=== PATIENT | female | born 1990 | race Caucasian/White ===

== ENCOUNTER 2022-12-26 13:32 | Outpatient (REF) | payer MEDICAID, OTHER, SELFPAY ==
--- NOTE | ~2022-12-26 | MM_ITS ---
EXAMINATION: MM DIAGNOSTIC DIGITAL BREAST TOMOSYNTHESIS, BILATERAL US DIAGNOSTIC ULTRASOUND BREAST, BILATERAL CLINICAL INFORMATION: 32-year-old with bilateral breast pain and tenderness, approximately 6 months. No palpable mass noted by patient. No discharge. No erythema. Clinical exam notes scattered palpable areas. No known family history breast cancer. The lifetime risk of breast cancer based on the Tyrer-Cuzick Model is 10%. COMPARISON: Targeted left breast ultrasound 02/17/2018. No prior mammography. TECHNIQUE: Digital breast tomosynthesis is performed in both the craniocaudal and mediolateral oblique views along with computer-aided detection (CAD). Synthesized 2D images are generated from the tomosynthesis. Ultrasound bilateral breasts is targeted to the areas of clinical concern using grayscale imaging and color Doppler without and with harmonics. FINDINGS: There are scattered areas of fibroglandular density (ACR BI-RADS breast composition Category b). There are no significant masses, abnormal calcifications, or other abnormalities. No skin thickening or coarsening of the Mumtaz's ligaments. No architectural abnormality. The axilla and skin contours are unremarkable. Ultrasound bilateral breasts demonstrate no cystic or solid mass or architectural abnormality or focal duct ectasia. No skin thickening or edema tracking in soft tissue planes. No hyperemia. Results and management options are discussed with the patient at time of visit. MM/MM tomosynthesis diagnostic BI IMPRESSION: -No mammographic evidence of malignancy or inflammatory changes. -Unremarkable bilateral breast ultrasound. ASSESSMENT: BI-RADS 1: Negative RECOMMENDATION: 1. Patient's bilateral mastodynia should be managed based on the clinical impression. If there remains a clinically palpable concern, further evaluation may be considered with surgical consult. 2. Otherwise, routine annual screening mammography, beginning age 40, or earlier as clinical risk factors warrant. This patient's information was entered into a reminder system with a target due date for their next mammogram.
== END 2022-12-26 13:33 | disposition home or self-care (01) ==
LOC: HO.MAMMO 13:32
PROVIDERS: PCP Internal Medicine; Visit Provider Pediatrics
DX: N64.4 Mastodynia (principal)
CPT/HCPCS: 76642; 77062; 77066

== ENCOUNTER 2023-01-28 17:37 | Outpatient (REF) | payer MEDICAID, OTHER, SELFPAY ==
[2023-02-05 07:44] LABS: HPV 16 RNA NOT DETECTED (NOT DETECTED); HPV mRNA E6/E7 rflx Detected (Not Detected)
== END 2023-01-28 17:38 | disposition home or self-care (01) ==
LOC: HO.HHCL 17:37
PROVIDERS: Visit Provider Advanced Practice Midwife
DX: Z12.4 Encounter for screening for malignant neoplasm of cervix (principal); Z11.51 Encounter for screening for human papillomavirus (HPV)
CPT/HCPCS: 87624; 87625; 88142

== ENCOUNTER 2023-07-28 10:30 | Outpatient (REF) | payer MEDICAID, OTHER, SELFPAY ==
[2023-07-28 14:58] LABS: MANUAL DIFF FLAG NO
[2023-07-28 15:03] LABS: Basophils Percent Auto 0.3 % (0-2); Hematocrit 40.2 % (37.0-47.0); Hemoglobin 13.8 g/dl (12.0-16.0); Lymphocytes Absolute Auto 1.7 X10*3/uL (1.2-4.9); Mean Corpuscular HGB Conc 34.3 g/dl (31.0-35.0); Mean Corpuscular Volume 96.2 fL (80.0-98.0); Mean Platelet Volume 10.5 fL (9.4-12.3); Monocytes Absolute Auto 0.2 X10*3/uL (0.1-1.2); Monocytes Percent Auto 6.8 % (2-11); Neutrophils Absolute Auto 1.2 x10*3/uL (2.0-8.3); Neutrophils Percent Auto 37.9 % (45-73); Platelet Count 185 X10*3/uL (160-400); Red Blood Count 4.18 X10*6/uL (4.20-5.50); Red Cell Distribution Width 12.8 % (11.0-16.0); White Blood Count 3.1 X10*3/uL (4.8-10.8)
[2023-07-28 15:06] LABS: Appearance Urine Cloudy; Color Urine Yellow; Glucose Urine UA Negative (Negative); Leukocyte Esterase Urine Negative (Negative); Nitrite Urine Positive (Negative); Specific Gravity - Urine 1.015 (1.005-1.025); UMIC TRIGGER UACC YES; Urine Blood Negative (Negative); Urine Ketones 15 mg/dL (Negative); Urine Protein Negative (Neg-Trace)
[2023-07-28 15:09] LABS: Bacteria Urine 4+ (None Seen); Hyaline Casts Urine 0-2 /LPF (0-2); RBC Urine 0-2 /HPF (0-2); UACC Culture Trigger YES; WBC Urine 0-5 /HPF (0-5)
[2023-07-28 15:33] LABS: Alanine Aminotransferase 111 U/L (0-31); Albumin Level 4.4 g/dL (3.5-5.0); Alkaline Phosphatase 95 U/L (39-117); Anion Gap 18 (12-20); Aspartate Amino Transferase 114 U/L (5-31); Bilirubin Total 0.7 mg/dL (0.0-1.0); Blood Urea Nitrogen 8 mg/dL (9-16); Calcium 9.2 mg/dL (8.4-10.2); Carbon Dioxide 23 mmol/L (22-29); Chloride 104 mmol/L (96-108); Cholesterol 219 mg/dL (<200); Estimated Glomerular Filt Rate > 60; Glucose Random 73 mg/dL (60-115); HDL Cholesterol 76 mg/dL (>40); LDL Cholesterol Calculated 124 mg/dL (<100); Potassium 3.8 mmol/L (3.3-5.1); Sodium 141 mmol/L (135-145); Total Protein 7.7 g/dL (6.5-8.0); Triglycerides 99 mg/dL (<150)
[2023-07-28 15:48] LABS: TSH reflex Free T4 1.61 uIU/mL (0.32-4.0)
[2023-07-29 05:48] LABS: HIV AB/AG Nonreactive (Nonreactive); HIV Num 1 0.04 S/CO (0.00-0.99)
== END 2023-07-28 10:31 | disposition home or self-care (01) ==
LOC: HO.CHCLDS 10:30
PROVIDERS: Visit Provider Internal Medicine
DX: Z00.00 Encounter for general adult medical examination without abnormal findings (principal); M62.830 Muscle spasm of back; Z11.3 Encounter for screening for infections with a predominantly sexual mode of transmission
CPT/HCPCS: 36415; 80053; 80061; 81001; 84443; 85025; 87086; 87389

== ENCOUNTER 2023-07-31 10:22 | Outpatient (REF) | payer MEDICAID, OTHER, SELFPAY ==
[2023-08-01 08:07] LABS: HBS Num1 39.24 mIU/mL (0-7.99); HBc Num1 0.04 S/CO (0.00-0.79); HBsAGNum1 0.35 S/CO (0.00-0.99); Hepatitis A Antibody IgM 0.15 Index (0-0.79); Hepatitis A Antibody IgM 0.16 Index (0-0.79); Hepatitis B Core Antibody Nonreactive (Nonreactive); Hepatitis B Surface Antigen Negative (Negative); ~HepC Num1 0.07 S/CO (0.00-0.79); ~Hepatitis A Antibody IgM Nonreactive (Nonreactive); ~Hepatitis B Surface Antibody REACTIVE (Nonreactive); ~Hepatitis C Antibody Nonreactive (Nonreactive)
[2023-08-01 08:09] LABS: Hepatitis B Core Antibody Nonreactive (Nonreactive)
== END 2023-07-31 10:23 | disposition home or self-care (01) ==
LOC: HO.CHCLDS 10:22
PROVIDERS: Visit Provider Internal Medicine
DX: R74.01 Elevation of levels of liver transaminase levels (principal)
CPT/HCPCS: 36415; 86704; 86706; 86709; 86803; 87340

== ENCOUNTER 2023-08-05 16:13 | Outpatient (REF) | payer MEDICAID, OTHER, SELFPAY ==
[2023-08-06 11:22] LABS: CT PCR NOT DETECTED (Not Detect.); NG PCR NOT DETECTED (Not Detect.)
== END 2023-08-05 16:14 | disposition home or self-care (01) ==
LOC: HO.CHCLNP 16:13
PROVIDERS: Visit Provider Advanced Practice Midwife
DX: Z11.3 Encounter for screening for infections with a predominantly sexual mode of transmission (principal)
CPT/HCPCS: 0353U

== ENCOUNTER 2023-08-19 08:13 | Outpatient (REF) | payer MEDICAID, OTHER, SELFPAY ==
--- NOTE | ~2023-08-19 | US_ITS ---
EXAMINATION: US ABDOMEN COMPLETE CLINICAL INFORMATION: Transaminitis. COMPARISON: None available. TECHNIQUE: Real-imaging of the abdominal viscera. Limited visualization due to bowel gas. FINDINGS: PANCREAS: Limited visualization of pancreatic tail and head. Imaged portion of pancreatic body is unremarkable. ABDOMINAL AORTA: Nonaneurysmal. INFERIOR VENA CAVA: Visualized portions are normal. LIVER: Liver measures 12.2 cm. Mildly increased hepatic parenchymal heterogeneity and echogenicity could be associated with hepatocellular disease/hepatic steatosis and substantially limits visualization. Correlation with liver function tests and clinical exam recommended to determine further management. GALLBLADDER: No gallstones. No gallbladder wall thickening. COMMON BILE DUCT: Normal in caliber measuring 0.3 cm in diameter. RIGHT KIDNEY: Multiple tiny echogenic foci, possibly representing tiny calcifications. No hydronephrosis. Limited visualization. The kidney measures 11.8 cm in maximum dimension. LEFT KIDNEY: Multiple tiny echogenic foci, possibly representing tiny calcifications. No hydronephrosis. Limited visualization. The kidney measures 10.8 cm in maximum dimension. SPLEEN: The spleen measures 12.1 cm in maximum dimension. Spleen borderline enlarged. FREE FLUID: None. US/US abdomen complete IMPRESSION: 1. Mildly increased hepatic parenchymal heterogeneity and echogenicity could be associated with hepatocellular disease/hepatic steatosis and substantially limits visualization. Correlation with liver function tests and clinical exam recommended to determine further management. 2. Multiple tiny echogenic foci in the kidneys, possibly representing tiny calcifications. No hydronephrosis. Limited visualization.
== END 2023-08-19 08:14 | disposition home or self-care (01) ==
LOC: HO.US 08:13
PROVIDERS: PCP Internal Medicine; Visit Provider Internal Medicine
DX: R74.01 Elevation of levels of liver transaminase levels (principal)
CPT/HCPCS: 76700

== ENCOUNTER 2023-09-02 16:28 | Outpatient (REF) | payer MEDICAID, OTHER, SELFPAY ==
[2023-09-03 14:49] LABS: BV Int Neg Control Negative (Negative); BV Int Pos Control Positive (Positive)
== END 2023-09-02 16:29 | disposition home or self-care (01) ==
LOC: HO.CHCLNP 16:28
PROVIDERS: Visit Provider Advanced Practice Midwife
DX: N89.8 Other specified noninflammatory disorders of vagina (principal)
CPT/HCPCS: 87480; 87510; 87660

== ENCOUNTER 2024-01-29 18:12 | Outpatient (REF) | payer MEDICAID, OTHER, SELFPAY ==
[2024-02-02 12:44] LABS: HPV mRNA E6/E7 Not Detected (Not Detected)
== END 2024-01-29 18:13 | disposition home or self-care (01) ==
LOC: HO.HHCLNP 18:12
PROVIDERS: Visit Provider Advanced Practice Midwife
DX: Z12.4 Encounter for screening for malignant neoplasm of cervix (principal)
CPT/HCPCS: 36415; 87624; 88175

== ENCOUNTER 2024-04-21 10:43 | Outpatient (REF) | payer MEDICAID, OTHER, SELFPAY ==
[2024-04-21 15:04] LABS: Alanine Aminotransferase 18 U/L (0-31); Albumin Level 4.6 g/dL (3.5-5.0); Alkaline Phosphatase 70 U/L (39-117); Aspartate Amino Transferase 24 U/L (5-31); Bilirubin Direct 0.1 mg/dL (0.0-0.5); Bilirubin Total 0.4 mg/dL (0.0-1.0); Total Protein 7.9 g/dL (6.5-8.0)
[2024-04-23 14:04] LABS: Anti Nuclear Antibody Screen NEGATIVE (NEGATIVE)
== END 2024-04-21 10:44 | disposition home or self-care (01) ==
LOC: HO.CHCLDS 10:43
PROVIDERS: Visit Provider Internal Medicine
DX: R74.8 Abnormal levels of other serum enzymes (principal)
CPT/HCPCS: 36415; 80076; 86038

== ENCOUNTER 2024-08-11 10:42 | Outpatient (REF) | payer MEDICAID, OTHER, SELFPAY ==
--- OUTSIDE RECORDS SUMMARY | 2024-08-11 12:27 | XMS_ITS | Encounter Summary ---
Author Organization [employer] Address [address] [facility] 7 [place] [address] Care Team Providers Care Chief Controller Tower Name Role Phone Kevin Trejo MD Primary Care Provider [phone] Reason for Visit * Reason Comments Annual Exam Encounter Details Date Type Department Care Team ([facility] st Contact Info) Description 08/11/2024 10:00 AM EST Office Visit [facility] MED & PEDS [address] [place], [place] [phone] Kevin Trejo MD [address] [place] [address] Annual physical exam (Primary Dx); Muscle cramps; Smoking; Transaminitis; Impacted cerumen of right ear; Encounter for immunization Social History Tobacco Use Types Packs/Day Years Used Date Smoking Tobacco: Every Day Cigarettes Passive Smoke Exposure: Never Smokeless Tobacco: Never Tobacco Cessation:Ready to Q uit: Not Asked; Counseling Given: Not Answered Comments:3-4 cig during the week ends. Alcohol Use Standard Drinks/Week Comments Defer 0 (1 standard drink = 0.6 oz pur e alcohol) Depression Answer Date Recorded Patient Health Questionnaire-9 Score 0 08/11/2024 Patient Health Questionnaire-9 Score 0 08/11/2024 Last PHQ-9: Questionnaire Data Not on file 0 08/11/2024 Housing Stability Answer Date Recorded What is your housing situation today? I have jono mayorga 08/04/[address] you li ve. Do you have problems with any of the following? None of the above 08/04/2024 Food Insecurity Answer Date Recorded Within the past 12 months, y ou worried that your food would run out before you got money to buy more: Never True 08/04/2024 Within the past 12 months,th e food you bought just didn't last and you didn't have enough money to get more: Never True 10/2024 Transportation Answer Date Recorded In the past 12 months, has l ack of transportation kept you from medical appts, meetings, work or from getting things needed for daily living? No 08/04/2024 Utilities Answer Date Recorded In the past 12 months, has t he electric, gas, oil or water company threatened to shut off services in your home? No 08/04/2024 Depression Answer Date Recorded Patient Health Questionnaire-2 Score 0 08/11/2024 Internet Access Answer Date Recorded Internet Access Q1 Yes 08/04/2024 Internet Access Q2 Not on file 08/04/2024 Comments No Sex and Gender Information Value Date Recorded Sex Assigned at Female 04/29/2022 10:30 AM EDT Legal Sex Female 10:30 AM EDT Gender Identity Female 04/29/2022 10:30 AM EDT Sexual Orientation Straight 04/29/2022 10 :30 AM EDT documented as of this encounter Last Filed Vital Signs Vital Sign Reading Time Taken Comments Blood Pressure 110/70 08/11/2024 10:10 AM EST Pulse 64 08/11/2024 10:10 AM EST Temperature 36.7 ??C (98.1 ??F) 08/11/2024 1 0:10 AM EST Respiratory Rate 20 08/11/2024 10:1 0 AM EST Oxygen Saturation 98% 08/11/2024 10: 10 AM EST Inhaled Oxygen Concentration - - Weight 69.9 kg (154 lb 3.2 oz) 08/11/2024 10:10 AM EST Height 171 cm (5' 7.32 ) 08/11/2024 10: 10 AM EST with shoes decline to remove Body Mass Index 23.92 08/11/2024 10:10 AM EST documented in this encounter Plan of Treatment Scheduled Orders Name Type Priority Associated Diagnoses Orde r Schedule Comprehensive Metabolic Panel Lab Routine Annual physical exam Expected: 08/11/2024 (Approximate), Expires: 08/11/2025 CBC auto differential Lab Routine Annual physical exam Expected: 08/11/2024 (Approximate), Expires: 08/11/2025 TSH W/Reflex to FT4 Lab Routine Annual physical exam Expected: 08/11/2024 (Approximate), Expires: 08/11/2025 documented as of this encounter Visit Diagnoses Diagnosis Annual physical exam- Primary Routine general medical examination at a health care facility Muscle cramps Smoking Tobacco use disorder Transaminitis Nonspecific elevation of levels of transaminase or lactic acid dehydrogenase (LDH) Impacted cerumen of right ear Impacted cerumen Encounter for immunization documented in this encounter Additional Health Concerns Assessment Noted Time PHQ-9 Depression Total Score: 0 08/11/19 25 10:14 AM EST documented as of this encounter Care Teams Chief Controller Tower Relationship Specialty Start Date End Date Kevin Trejo MD [address] [place] [id number] PCP - General Internal Medicine 05/14/16 documented as of this encounter
--- OUTSIDE RECORDS SUMMARY | 2024-08-11 12:27 | XMS_ITS | Encounter Summary ---
Author Organization [employer] Address [address] [facility] 7t [place] [address] Care Team Providers Care Business Executive Name Role Phone Kevin Trejo MD Primary Care Provider [phone] Reason for Visit * Reason Comments Med Change Request Encounter Details Date Type Department Care Team ([facility] st Contact Info) Description 12/03/2022 Refill [facility] [address] [place], [place] [phone] Karen Roblero MD [address] [place] [address] Social History Tobacco Use Types Packs/Day Years Used Date Smoking Tobacco: Never Passive Smoke Exposure: Never Smokeless Tobacco: Never Depression Answer Date Recorded Patient Health Questionnaire-9 Score 0 07/30/2022 Depression Answer Date Recorded Patient Health Questionnaire-2 Score 0 07/30/2022 Comments No Sex and Gender Information Value Date Recorded Sex Assigned at Female 04/29/2022 10:30 AM EDT Legal Sex Female 10:30 AM EDT Gender Identity Female 04/29/2022 10:30 AM EDT Sexual Orientation Straight 04/29/2022 10 :30 AM EDT COVID-19 Exposure Response Date Recorded In the last 10 days, have yo u been in contact with someone who was confirmed or suspected to have Coronavirus/COVID-19? No / Unsure 12/03/2022 10:16 AM EDT documented as of this encounter Plan of Treatment Not on file documented as of this encounter Visit Diagnoses Not on filedocumented in this encounter Additional Health Concerns Assessment Noted Time PHQ-9 Depression Total Score: 0 07/30/19 23 11:27 AM EST documented as of this encounter Care Teams Business Executive Relationship Specialty Start Date End Date Kevin Trejo MD [address] [place] [id number] PCP - General Internal Medicine 05/14/16 documented as of this encounter
--- OUTSIDE RECORDS SUMMARY | 2024-08-11 12:27 | XMS_ITS | Encounter Summary ---
Author Organization [employer] Address [address] [place] [address] 7t [place] [address] Care Team Providers Care Drill Press Set Up Operator Name Role Phone Kevin Trejo MD Primary Care Provider [phone] Reason for Referral * Imaging (Routine) - Closed Specialty Diagnoses / Procedures Referred By Jen jones Referred To Contact Diagnoses Painful breasts Segmental fibroadenosis of breast, unspecified laterality Procedures BI US Breast Complete Right Karen Roblero MD [address] [place] [address] Phone: tel: fax: [address] Phone: tel: fax: Referral ID Status Reason Start Date Expiration Date Visits Re quested Visits Authorized [id number] Closed 12/11/2022 06/09/2023 1 1 * Imaging (Routine) - Closed Specialty Diagnoses / Procedures Referred By Jen jones Referred To Contact Diagnoses Painful breasts Segmental fibroadenosis of breast, unspecified laterality Procedures BI US Breast Complete Left Karen Roblero MD [address] [place] [address] Phone: tel: fax: [address] Phone: tel: fax: Referral ID Status Reason Start Date Expiration Date Visits Re quested Visits Authorized [id number] Closed 12/11/2022 06/09/2023 1 1 * Imaging (Routine) - Closed Specialty Diagnoses / Procedures Referred By Jen t Referred To Contact Diagnoses Painful breasts Segmental fibroadenosis of breast, unspecified laterality Procedures BI Mammogram Diagnostic Bilateral Karen Roblero MD [address] [place] [address] Phone: tel: fax: [address] Phone: tel: fax: Referral ID Status Reason Start Date Expiration Date Visits Re quested Visits Authorized [id number] Closed 12/11/2022 06/09/2023 1 1 Encounter Details Date Type Department Care Team (Late st Contact Info) Description 12/11/2022 Orders Only [facility] MED [facility] PEDS [address] [place] [address] Karen Roblero MD [address] [place] [address] Painful breasts (Primary Dx); Segmental fibroadenosis of breast, unspecified laterality Social History Tobacco Use Types Packs/Day Years [...] as of this encounter Visit Diagnoses Diagnosis Painful breasts- Primary Mastodynia Segmental fibroadenosis of breast, unspecified laterality documented in this encounter Additional Health Concerns Assessment Noted Time PHQ-9 Depression Total Score: 0 07/30/19 23 11:27 AM EST documented as of this encounter Care Teams Drill Press Set Up Operator Relationship Specialty Start Date End Date Kevin Trejo MD [address] [place] [id number] PCP - General Internal Medicine 05/14/16 documented as of this encounter
--- OUTSIDE RECORDS SUMMARY | 2024-08-11 12:27 | XMS_ITS | Encounter Summary ---
Author Organization [employer] Address [address] [facility] 7 [place] [address] Care Team Providers Care Linoleum Layer Helper Name Role Phone Kevin Trejo MD Primary Care Provider [phone] Reason for Visit * Reason Onset Date Comments Chart Prep 08/10/2024 Encounter Details Date Type Department Care Team ([facility] st Contact Info) Description 08/10/2024 Telephone [facility] MED & PEDS [address] [place] [address] Kevin Trejo MD [address] [place] [address] Chart Prep Social History Tobacco Use Types Packs/Day Years Used Date Smoking Tobacco: Every Day Cigarettes Passive Smoke Exposure: Never Smokeless Tobacco: Never Alcohol Use Standard Drinks/Week Comments Defer 0 [...] AM EDT documented as of this encounter Miscellaneous Notes * Telephone Encounter - Joy Arias [place] - 08/10/2024 1:54 PM EST Chart Prep Labs: not done Images: done Vaccines due: yes Referrals: complete Screenings: pap smear Overdue care gaps: Sbirt, PHQ-9, disability screening documented in this encounter Plan of Treatment Not on file documented as of this encounter Visit Diagnoses Not on filedocumented in this encounter Additional Health Concerns Assessment Noted Time PHQ-9 Depression Total Score: 8 07/28/19 24 10:28 AM EST documented as of this encounter Care Teams Linoleum Layer Helper Relationship Specialty Start Date End Date Kevin Trejo MD [address] [place] [id number] PCP - General Internal Medicine 05/14/16 documented as of this encounter
--- OUTSIDE RECORDS SUMMARY | 2024-08-11 12:28 | XMS_ITS | Encounter Summary ---
Author Organization [employer] Address [address] [facility] 7t [place] [address] Care Team Providers Care Steel Wheel Engraver Name Role Phone Kevin Trejo MD Primary Care Provider [phone] Reason for Visit * Reason Onset Date Comments Nurse Triage 06/17/2023 Encounter Details Date Type Department Care Team ([facility] st Contact Info) Description 06/17/2023 Telephone [facility] MED & PEDS [address] [place] [address] Kevin Trejo MD [address] [place] [address] Nurse Triage Social History Tobacco Use Types Packs/Day Years Used Date Smoking Tobacco: Some Days Cigarettes Passive Smoke Exposure: Never Smokeless Tobacco: Never Alcohol Use Standard Drinks/Week Comments Defer 0 (1 standard drink = 0.6 oz pur e alcohol) Depression Answer Date Recorded Patient Health Questionnaire-9 Score 0 07/30/2022 Housing Stability Answer Date Recorded What is your housing situation today? Not on tan e 04/28/[address] you li ve. Do you have problems with any of the following? None of the above 04/28/2023 Food Insecurity Answer Date Recorded Within the past 12 months, y ou worried that your food would run out before you got money to buy more: Never True 04/28/2023 Within the past 12 months,th e food you bought just didn't last and you didn't have enough money to get more: Never True Transportation Answer Date Recorded In the past 12 months, has l ack of transportation kept you from medical appts, meetings, work or from getting things needed for daily living? No 04/28/2023 Utilities Answer Date Recorded In the past 12 months, has t he electric, gas, oil or water company threatened to shut off services in your home? No 04/28/2023 Depression Answer Date Recorded Patient Health Questionnaire-2 Score 0 07/30/2022 Comments No Sex and Gender Information Value Date Recorded Sex Assigned at Female 04/29/2022 10:30 AM EDT Legal Sex Female 10:30 AM EDT Gender Identity Female 04/29/2022 10:30 AM EDT Sexual Orientation Straight 04/29/2022 10 :30 AM EDT documented as of this encounter Miscellaneous Notes * Telephone Encounter - Yumi Fang RN - 06/17/2023 9:06 AM EST Triage call Pt reports cough. Difficult to triage due to constant coughing while on the phone. Pt reports cough has been persistent for a week now. Pt has a deep bronchial, constant cough. Pt is not able to produce anything. Pt is not sure if fever is present and hasn't tested for Covid at all. Negfor nasal drainage, headache, body aches or other CONNER symptoms. Pt reports chest hurts with cough bu t, not without the cough. Pt has used honey, warm liquids without effect. Advised to come to [facility] today at [facility] [address] apt. Home care reviewed and Pt is already doing many of the recommendations. Protocol Used: Cough (Adult) Protocol-Based Disposition: See in Office or Video Visit Today Video visit not offered Positive Triage Question: * Severe coughing spells (e.g., whooping sound after coughing, vomiting after coughing) * All higher-acuity triage questions were negative Care Advice Discussed: * Reassurance and Education - Cough * Cough Medicines * Cough Syrup With Dextromethorphan * Coughing Spells * Prevent Dehydration * Humidifier * Reasons To Call Back - Difficulty breathing - Cough lasts more than 3 weeks - Fever lasts more than 3 days - You become worse * Telephone Encounter - Codey Khanrero - 06/17/2023 8:32 AM EST Symptom: Cough Outcome: Schedule an urgent appointment (within 1 hour) or talk to a nurse or provider soon Reason: Wheezing (high-pitched whistling sound) The caller accepted this outcome Please contact Pt [phone] documented in this encounter Plan of Treatment Not on file documented as of this encounter Visit Diagnoses Not on filedocumented in this encounter Additional Health Concerns Assessment Noted Time PHQ-9 Depression Total Score: 0 07/30/19 11:27 AM EST documented as of this encounter Care Teams Steel Wheel Engraver Relationship Specialty Start Date End Date Kevin Trejo MD [address] [place] [id number] PCP - General Internal Medicine 05/14/16 documented as of this encounter
--- OUTSIDE RECORDS SUMMARY | 2024-08-11 12:28 | XMS_ITS | Clinical Summary ---
Author Organization [employer] Address [address] [facility] 7[address] [place] [address] Care Team Providers Care Outside Repairer Special Name Role Phone Kevin Trejo MD Primary Care Provider [phone] Allergies No known active allergies Medications ibuprofen 800 MG tablet take 1 tablet by oral route 3 times every day with food x 5d as needed for bleeding 2 09/04/19 25 Active fish oil (fish oil) 1000 MG capsule Take 1 capsule orally bid 60 capsule 3 3 Active azithromycin (Zithromax Z-Bolivar) 250 MG tablet Take 2 tablets once on day 1, then 1 tablet once a day for 4 days. 6 tablet 3 Active diphenhydrAMINE (BENADryl) 25 MG tablet Take 1 tablet (25 mg) by mouth if needed at bedtime (cough). 30 tablet 3 Active dicyclomine (Bentyl) 10 MG capsuleIndicatio ns:Lower abdominal pain,Diarrhea, unspecified type Take 1 capsule (10 mg) by mouth 4 times daily. 120 capsule 11 4 04/21/20 25 Active tiZANidine (Zanaflex) 2 MG tabletIndication s:Muscle cramps Take 1 tablet (2 mg) by mouth every 6 (six) hours if needed for muscle spasms for up to 10 days. 30 tablet 5 08/21/19 25 Active nicotine polacrilex (Nicorette) 4 MG gumIndications:S moking Chew 1 each (4 mg) if needed for smoking cessation. 100 each 5 09/11/19 25 Active carbamide peroxide (Debrox) 6.5 % otic solutionIndicati ons:Impacted cerumen of right ear Administer 5-10 drops into affected ear(s) 2 times daily for 4 days. 30 mL 08/15/19 25 Active Active Problems Problem Noted Date Diagnosed Date Bacterial conjunctivitis 12/12/2017 Encounters Date Type Department Care Team Description 08/11/2024 10:00 AM EST Office Visit [facility] [address] [place] [address] Kevin Trejo MD Annual physical exam (Primary Dx); Muscle cramps; Smoking; Transaminitis; Impacted cerumen of right ear; Encounter for immunization 08/11/2024 Travel 08/10/2024 Telephone [facility] [address] [place] [address] Kevin Trejo MD Chart Prep 08/04/2024 Patient Outreach [facility] [address] [place] [address] Kevin Trejo MD Pre-visit Planning (SDOH negative, Tobacco screening positive.) 07/27/2024 9:30 AM EST Office Visit [facility] [address] [place] [address] Corky Alonzo 06/16/2024 10:00 AM EST Office Visit [facility] [address] [place] [address] Corky Alonzo 05/20/2024 10:00 AM EST Office Visit [facility] [address] [place] [address] Corky Alonzo from Last 3 Months Immunizations Name Administration Dates Next Due Hep B, adult 08/11/2024 Tdap 08/11/2024 Social History Tobacco Use Types Packs/Day Years [...] Orientation Straight 04/29/2022 10 :30 AM EDT Last Filed Vital Signs Vital Sign Reading [...] Mass Index 23.92 08/11/2024 10:10 AM EST Plan of Treatment Health Maintenance Due Date Last Done Comments Dental Prophylaxis 1991 Pneumococcal Vaccine: Pediatrics (0 to 5 Years) and At-Risk Patients (6 to 49) Years) (1 of 2 - PCV) 10/26/2010 Hepatitis B Vaccines (2 of 3 - 19+ 3-dose series) 09/08/2024 08/11/2024 Dental Oral Exam 10/13/2024 04/13/2024, 12/20/2022 Influenza Vaccine (#1) 2024 Postp oned from 02/29/2024 (Patient Refused) Cervical Cancer Screening 01/28/2025 Family Planning (PISQ) 01/28/2025 01/29/2024 HPV/Cotest 01/28/2025 01/29/2024, 01/28/2023 Pap Smear 01/28/2025 01/29/2024, 01/28/2023 Dental X-Ray: Bitewings 04/14/2025 04/13/20 24, 03/19/2024, 12/20/2022 SDOH Screening 08/04/2025 08/04/2024 Alcohol/Substance Use Screening 08/11/2025 08/11/2024 COVID-19 Vaccine (1 - 2023-2 5 season) 2025 Postponed from 02/28 (Patient Refused) Depression Screening 08/11/2025 08/11/2024, 08/11/2024 Tobacco Screening 08/11/2025 08/11/2024 Dental X-Ray: Full Mouth 12/21/2025 12/20/2022 Lipid Panel 07/28/2028 07/28/2023 DTaP/Tdap/Td Vaccines (2 - T d or Tdap) 08/11/2034 08/11/2024 Zoster Vaccines (1 of 2) 10/26/2041 RSV Patients and Patients Aged 60 years or older (1 - 1-dose 75+ series) 10/26/2066 HIV Screening Completed 07/28/2023 Hepatitis C Screening Completed 07/31/2023 , 08/16/2022 HIB Vaccines Aged Out No longer eligi ble based on patient's age to complete this topic HPV Vaccines Aged Out No longer eligi ble based on patient's age to complete this topic Hepatitis A Vaccines Aged Out No long er eligible based on patient's age to complete this topic IPV Vaccines Aged Out No longer eligi ble based on patient's age to complete this topic Meningococcal Vaccine Aged Out No chrissie daryl eligible based on patient's age to complete this topic RSV under 20 months Aged Out No longe r eligible based on patient's age to complete this topic Rotavirus Vaccines Aged Out No longer eligible based on patient's age to complete this topic Procedures Procedure Name Priority Date/Time Associated Diagnosis Comments 2 O RESTORATIVE - RESIN-BASED COMPOSITE RESTORATIONS - DIRECT - RESIN-BASED COMPOSITE - ONE SURFACE, POSTERIOR Routine 07/27/2024 9:30 AM EST 16 O RESTORATIVE - RESIN-BASED COMPOSITE RESTORATIONS - DIRECT - RESIN-BASED COMPOSITE - ONE SURFACE, POSTERIOR Routine 06/16/2024 10:00 AM EST 15 O RESTORATIVE - RESIN-BASED COMPOSITE RESTORATIONS - DIRECT - RESIN-BASED COMPOSITE - ONE SURFACE, POSTERIOR Routine 06/16/2024 10:00 AM EST 3 O RESTORATIVE - RESIN-BASED COMPOSITE RESTORATIONS - DIRECT - RESIN-BASED COMPOSITE - ONE SURFACE, POSTERIOR Routine 05/20/2024 10:00 AM EST BITEWINGS - 4 RADIOGRAPHIC IMAGES Routine 04/13/2024 2:00 PM EDT PERIODIC ORAL EVALUATION - ESTABLISHED PATIENT Routine 04/13/2024 2:00 PM EDT THINPREP IMAGING PAP AND HPV MRNA E6/E7 Routine 01/29/2024 10:45 AM EDT HEPATITIS PANEL, GENERAL Routine 07/31/2023 10:27 AM EST Transaminitis HIV 1/2 ANTIGEN/ANTIBODY, FOURTH GENERATION W/RFL Routine 07/28/2023 10:33 AM EST Annual physical exam Muscle spasm of back Screen for STD (sexually transmitted disease) LIPID PANEL, STANDARD Routine 07/28/2023 10:33 AM EST Annual physical exam Muscle spasm of back DIAGNOSTIC - DIAGNOSTIC IMAGING - INTRAORAL - COMPREHENSIVE SERIES OF RADIOGRAPHIC IMAGES Routine 12/20/2022 10:00 AM EDT from Last 3 Months or Most Recently Relevant to Health Maintenance Results * (ABNORMAL) ThinPrep Imaging Pap and HPV mRNA E6/E7 (01/29/2024 10:45 AM EDT) HPV nRNA E6/E7 Not Detected Not Detected [facility] Comment:Methodology: Transcr iption-Mediated AmplificationThis assay detects E6/E7 viral messenger RNA (mRNA) from 14high-risk HPV types (16,18,31,33,35,39,45,51,52,56,58,59,66,68).Cervical sources are required for HPV testing.If a vaginal source from a patient who has had atotal hysterectomy with removal of cervix wassubmitted, please contact the testing laboratoryfor alternative testing options.For additional information, please refer [email or web address]/[email or web address](This link if provided for information/educational purposes only.)THIS TEST WAS PERFORMED AT:[facility]-[address] [place] [phone] NAIDU MD SOURCE: SEE NOTE [facility] Comment:None given Report Status: [facility] Clinical Information: SEE NOTE [facility] Comment:None given LMP: SEE NOTE [facility] Comment:NONE GIVEN Prev. PAP: SEE NOTE [facility] Comment:NONE GIVEN Prev. BX: SEE NOTE [facility] Comment:NONE GIVEN Statement Of Adequacy: SEE [facility] Comment:Satisfactory for elle luation.Endocervical/transformation zone component absent. General Categorization: SEE NOTE(A) [facility] Comment:Cytology Results: Ep ithelial Cell Abnormality Interpretation/Result: SEE NOTE(A) [facility] Comment:Atypical Squamous Ce lls of UndeterminedSignificance (ASC-US) Cytology Comment SEE NOTE [facility] Comment:This Pap test has be en evaluated with computerassisted technology. Dining Car Hop: SEE NOTE [facility] Comment:ALEXANDRA HILLIARD(ASCP)ALEXANDRA nicolas location: [place] [address] Review Dining Car Hop: [facility] Pathologist SEE NOTE [facility] Comment:Karen Paula M.D., Ph .D.,Board Certified in Anatomic and Clinical Pathologyand Cytopathology(electronic signature)Consulting Pathologist[facility] Pathology[address] [place] [address] [phone] PAP Infection TNP [facility] See Note SEE NOTE [facility] Comment:EXPLANATORY NOTE:The Pap is a screening test for cervical cancer. It isnot a diagnostic test and is subject to false negativeand false positive results. It is most reliable when asatisfactory sample, regularly obtained, is submittedwith relevant clinical findings and history, and whenthe Pap result is evaluated along with historic andcurrent clinical information. 01/29/2024 10:4 5 AM EDT 01/29/2024 6:14 PM EDT Narrative [facility] - 02/04/2024 3:06 PM EDT SEE SCANNED RESULTS IN EMR us Rebeka Lopez CNM LAB PATHOLOGY ORDERABLES Final Result Performing Organization Address [facility] Co de Phone Number [facility] [address] [place] [phone] * Hepatitis A,B,C Profile (07/31/2023 10:27 AM EST) Hepatitis A IgM Nonreactive Nonreactive [facility] Comment:IgM antibodies to JAMES V not detected; does not exclude earlyacute or recovered HAV infection. ~Hepatitis B Surface Antibody REACTIVE Nonreactive [facility] Comment:REACTIVE: > 11.99 mI U/mL Hepatitis B Core Antibody Nonreactive Nonreactive [facility] Hepatitis C Antibody Nonreactive Nonreactive [facility] Comment:Antibodies to HCV no t detected; does not exclude early acuteHCV infection. Hepatitis B Surface Ag Negative Negative [facility] Blood Venous blood specimen / Unknown 07/31/2023 10:27 AM EST 07/31/2023 2:11 PM EST us Kevin Trejo MD LAB BLOOD ORDERABLES Final Result Performing Organization Address [facility] Co de Phone Number [facility] [address] [place] [phone] * HIV-1/2 Antigen and Antibodies, Fourth Generation, with Reflexes (07/28/2023 10:33 AM EST) Pathologist [facility] HIV AB/AG Nonreactive Nonreactive [facility] Comment:HIV-1 p24 Ag and/or HIV-1/HIV-2 Ab not detected.A test result that is nonreactive does not exclude thepossibility of exposure to or infection with HIV-1 and/orHIV-2. Nonreactive results in this assay for individualswith prior exposure to HIV-1 and/or HIV-2 may be due toantigen and antibody levels that are below the limit ofdetection of this assay.The [employer] HIV Ag/Ab Combo assay result andsupplemental assay results should be interpreted inconjunction with the patient's clinical presentation,history and other laboratory results. If the results areinconsistent with clinical evidence, additional testing issuggested to confirm the result. Blood Venous blood specimen / Unknown 07/28/2023 10:33 AM EST 07/28/2023 2:52 PM EST us Kevin Trejo MD LAB BLOOD ORDERABLES Final Result [facility] [address] [place] [phone] * (ABNORMAL) Lipid Panel, Standard (07/28/2023 10:33 AM EST) Pathologist [facility] Triglycerides 99 <150 mg/dL [facility] Comment:Desirable Triglyceri de: less than 150 mg/dLBorderline High Triglyceride 150-199 mg/dLHigh Triglyceride: 200-499 mg/dLVery High Triglyceride: greater than or equal to 5OO mg/dL Cholesterol 219(H) <200 mg/dL [facility] Comment:Desirable Cholestero l: less than 200 mg/dLBorderline High Cholesterol: 200-239 mg/dLHigh Cholesterol: greater than 239 mg/dL LDL Cholesterol Calculated 124(H) <100 mg/dL [facility] Comment:Desirable LDL: less than 100 mg/dLNear Optimal/Above Optimal LDL: 110- 129 mg/dLBorderline High LDL: 130-159 mg/dLHigh LDL: 160-189 mg/dLVery High LDL: greater than or equal to 190 mg/dL HDL Cholesterol 76 >40 mg/dL [facility] Comment:Desirable HDL: great er than 40 mg/dL Note: This HDL assay may give artificially low results in patients with liver disease. Blood Venous blood specimen / Unknown 07/28/2023 10:33 AM EST 07/28/2023 2:52 PM EST us Kevin Trejo MD LAB BLOOD ORDERABLES Final Result [facility] [address] [place] [phone] from Last 3 Months or Most Recently Relevant to Health Maintenance [facility] F[facility] MEDICAID LIMITED ADULT DENTAL - [facility] FULL (MEDICAID) Care Teams Outside Repairer Special Relationship Specialty Start Date End Date Kevin Trejo MD [address] [place] [phone] PCP - General Internal Medicine 05/14/16
--- OUTSIDE RECORDS SUMMARY | 2024-08-11 12:28 | XMS_ITS | Encounter Summary ---
Author Organization [employer] Address [address] [facility] 7 [place] [address] Care Team Providers Care Facilities Technician Name Role Phone Kevin Trejo MD Primary Care Provider [phone] Reason for Visit * Reason Onset Date Comments Appointment Request 11/29/2022 Encounter Details Date Type Department Care Team (Late st Contact Info) Description 11/29/2022 Telephone [facility] [address] [place] [address] Kevin Trejo MD [address] [place] [address] [phone] Appointment Request Social History Tobacco Use Types Packs/Day Years Used Date Smoking Tobacco: Never Smokeless Tobacco: Never Depression Answer Date [...] encounter Miscellaneous Notes * Telephone Encounter - Amy Sosa - 11/29/2022 12:25 PM EDT Tc from pt requesting a follow up appointment with PCP. General Medical Practitioner checked Susana schedule and no availability. documented in this encounter Plan of Treatment Not on file documented as of this encounter Visit Diagnoses Not on filedocumented in this encounter Additional Health Concerns Assessment Noted Time PHQ-9 Depression Total Score: 0 07/30/19 23 11:27 AM EST documented as of this encounter Care Teams Facilities Technician Relationship Specialty Start Date End Date Kevin Trejo MD [address] [place] [phone] PCP - General Internal Medicine 05/14/16 documented as of this encounter
--- OUTSIDE RECORDS SUMMARY | 2024-08-11 12:28 | XMS_ITS | Encounter Summary ---
Author Organization [employer] Address [address] [facility] 7t [place] [address] Care Team Providers Care Crusher And Blender Operator Name Role Phone Kevin Trejo MD Primary Care Provider [phone] Reason for Visit * Reason Comments Filling Encounter Details Date Type Department Care Team ([facility] Contact Info) Description 07/27/2024 9:30 AM EST Office Visit [facility] [address] [place], [place] [phone] Corky Alonzo [address] [place], [place] [phone] Social History Tobacco Use Types Packs/Day Years Used Date Smoking Tobacco: Every Day Cigarettes Passive Smoke Exposure: Never Smokeless Tobacco: Never Alcohol Use Standard Drinks/Week Comments Defer 0 (1 standard drink = 0.6 oz pur e alcohol) Depression Answer Date Recorded Patient Health Questionnaire-9 Score 8 07/28/2023 Patient Health Questionnaire-9 Score 8 07/28/2023 Last PHQ-9: Questionnaire Data Not on file 0 07/28/2023 Housing Stability Answer Date Recorded What is your housing situation today? I have jono mayorga 07/18/[address] you li ve. Do you have problems with any of the following? None of the above 07/18/2023 Food Insecurity Answer Date Recorded Within the [...] Answer Date Recorded Patient Health Questionnaire-2 Score 1 07/28/2023 Comments No Sex and Gender Information Value Date Recorded Sex Assigned at Female 04/29/2022 10:30 AM EDT Legal Sex Female 10:30 AM EDT Gender Identity Female 04/29/2022 10:30 AM EDT Sexual Orientation Straight 04/29/2022 10 :30 AM EDT documented as of this encounter Last Filed Vital Signs Vital Sign Reading Time Taken Comments Blood Pressure 114/82 07/27/2024 9:42 AM EST Pulse - - Temperature - - Respiratory Rate - - Oxygen Saturation - - Inhaled Oxygen Concentration - - Weight - - Height - - Body Mass Index - - documented in this encounter Progress Notes * Corky Alonzo - 07/27/2024 9:30 AM EST Dental procedures in this visit [id number] - RESTORATIVE - RESIN-BASED COMPOSITE RESTORATIONS - DIRECT - RESIN-BASED COMPOSITE - ONE SURFACE, POSTERIOR 2 O (Completed) Service provider: Corky Alonzo Billrigoberto provider: Keila May DDS Patient ID: Rosy Yanez is a 33 y.o. female. Time Out: Date: 07/27/2024 Location: [facility] Tooth: #2 Procedure: Jainism Verified the above with patient, patient care nursing assistant, and provider. Confirmed via patient's chart, intraorally and by radiographs. Forensic Analyst: not applicable Composite adventist done on # [address] Corky Alonzo Risk, benefits, and alternatives discussed with the patient. CONSENT FORM INITIALED & SIGNED BY THE PATIENT AND COUNTERSIGNED BY Dr. Corky Alonzo Medical history: Reviewed in EHR Vitals: Blood pressure 114/82. Allergies: Reviewed in EHR Medications: Reviewed in EHR ASA 1 - LA: 20% topical benzocaine; Local infiltration with 1 carpule 4% septocaine/articaine 1:100,000 epinephrine - Existing adventist and recurrent decay removed - Desensitizer: Gluma - Base: LimeLite - Etching done using 37% phosphoric acid. - freight agent applied. - Composite adventist done using Filtek body/flowable composite, shade A2 - Anatomy and margins adjusted - Occlusion checked with articulating paper - Necessary reductions made. - Jainism smoothed and polished. - Post op instructions given Patient satisfied, left in stable condition Patient made aware possible post op sensitivity [place]: [place] Preps Provider: Dr. Corky Alonzo Straightening Roll Operator: Michelle Tobias Supervising dentist: Dr. May * Keila May DDS - 07/27/2024 9:30 AM EST I have reviewed the documentation and dental procedures completed by the rendering provider, Corky Alonzo and approve their chart entries for this visit. ANTHONY Parekh DDS documented in this encounter Plan of Treatment Scheduled Orders Name Type Priority Associated Diagnoses Orde r Schedule 19 19 RETREATMENT OF PREVIOUS ROOT CANAL THERAPY - [facility]AR Dental Routine [address] arting 07/27/2024 30 30 RETREATMENT OF PREVIOUS ROOT CANAL THERAPY - [facility] Dental Routine [address] arting 07/27/2024 documented as of this encounter Procedures Procedure Name Priority Date/Time Associated Diagnosis Comments 2 O RESTORATIVE - RESIN-BASED COMPOSITE RESTORATIONS - DIRECT - RESIN-BASED COMPOSITE - ONE SURFACE, POSTERIOR Routine 07/27/2024 9:30 AM EST documented in this encounter Visit Diagnoses Not on filedocumented in this encounter Additional Health Concerns Assessment Noted Time PHQ-9 Depression Total Score: 8 07/28/19 24 10:28 AM EST documented as of this encounter Care Teams Crusher And Blender Operator Relationship Specialty Start Date End Date Kevin Trejo MD [address] [place] [phone] PCP - General Internal Medicine 05/14/16 documented as of this encounter
--- OUTSIDE RECORDS SUMMARY | 2024-08-11 12:28 | XMS_ITS | Encounter Summary ---
Author Organization [employer] Address [address] [facility] 7t [place] [address] Care Team Providers Care Retail Marketing Coordinator Name Role Phone Kevin Trejo MD Primary Care Provider [phone] Encounter Details Date Type Department Care Team (Late st Contact Info) Description 08/12/2022 Orders Only [facility] MEDICINE [address] [place] [address] Kevin Trejo MD [address] [place], [place] [phone] Other drug-induced neutropenia (CMS/HCC) (Primary Dx); Elevated liver enzymes Social History Tobacco Use Types Packs/Day Years [...] suspected to have Coronavirus/COVID-19? No / Unsure 07/30/2022 11:15 AM EST documented as of this encounter Plan of Treatment Scheduled Orders Name Type Priority Associated Diagnoses Orde r Schedule CBC auto differential Lab Routine Other drug-induced neutropenia (CMS/HCC) Elevated liver enzymes Expected: 08/28/2022 (Approximate), Expires: 08/17/2023 Hepatic Function Panel Lab Routine Other drug-induced neutropenia (CMS/HCC) Expected: 09/14/2022 (Approximate), Expires: 08/17/2023 documented as of this encounter Procedures Procedure Name Priority Date/Time Associated Diagnosis Comments HEPATITIS C AB W/REFL TO HCV RNA, QN, PCR Routine 08/16/2022 9:28 AM EST Other drug-induced neutropenia (CMS/HCC) HEPATITIS A AB, TOTAL W/REFL IGM Routine 08/13/2022 9:10 AM EST Elevated liver enzymes CBC WITH AUTO DIFFERENTIAL Routine 08/13/2022 9:10 AM EST Other drug-induced neutropenia (CMS/HCC) HEPATITIS B CORE AB TOTAL Routine 08/13/2022 9:10 AM EST Elevated liver enzymes HEPATITIS B SURFACE ANTIBODY, QUALITATIVE Routine 08/13/2022 9:10 AM EST Elevated liver enzymes HEPATIC FUNCTION PANEL Routine 08/13/2022 9:10 AM EST Elevated liver enzymes documented in this encounter Results * Hepatitis C Antibody with Reflex to HCV, RNA, Quantitative, Real-Time PCR (08/16/2022 9:28 AM EST) Hepatitis C Antibody NON-REACT MARLA NON-REACT MARLA [email or web address] Index 0.03 <1.00 [facility] [employer] Comment: HCV antibody was non-reactive. There is no laboratory evidence of HCV infection. In most cases, no further action is required. However, if recent HCV exposure is suspected, a test for HCV RNA (test code 86665) is suggested. For additional information please refer to http://education.Gr[employer]oise/faq/KSH88r6 (This link is being provided for informational/ educational purposes only.) Blood Venous blood specimen / Unknown 08/16/2022 9:28 AM EST 08/16/2022 9:28 AM EST us Kevin Trejo MD LAB BLOOD ORDERABLES Final Result Performing Organization Address City/[facility]/ZIP Co de Phone Number [facility] [address] [place] [address], [place] [address] [facility] [address] [place] [address], (Nl2) [place] [address] * Hepatitis A Antibody, Total with Reflex to IgM (08/13/2022 9:10 AM EST) Hepatitis A Antibody, Total w/Refl IgM NON-REACT MARLA NON-REACT MARLA [facility] Comment: For additional information, please refer to http://education.[employer]oise/faq/AOL885 (This link is being provided for informational/ educational purposes only.) 08/13/2022 9:10 AM EST 08/13/2022 9:11 AM EST us Kevin Trejo MD LAB BLOOD ORDERABLES Final Result Performing Organization Address City/[facility]/ZIP Co de Phone Number [facility] [address] [place] [address], [place] [address] [facility] [address] [place] [address], (Nl2) [place] [address] * Hepatitis B Core Antibody, Total (08/13/2022 9:10 AM EST) Hepatitis B Core Antibody Total NON-REACT MARLA NON-REACT MARLA [facility] Blood Venous blood specimen / Unknown 08/13/2022 9:10 AM EST 08/13/2022 9:11 AM EST us Kevin Trejo MD LAB BLOOD ORDERABLES Final Result Performing Organization Address City/[facility]/ZIP Co de Phone Number [address], [place] [address] [facility] [address] [place] [address], (Nl2) [place] [address] * (ABNORMAL) Hepatitis B Surface Antibody, Qualitative (08/13/2022 9:10 AM EST) Pathologist [facility] Hepatitis B Surface Antibody QL REACTIVE( A) NON-REACT MARLA [facility] Blood Venous blood specimen / Unknown 08/13/2022 9:10 AM EST 08/13/2022 9:11 AM EST Kevin Trejo MD LAB BLOOD ORDERABLES Final Result [facility] [address] [place] [address], [place] [address] [facility] [address] [facility] [address], (Nl2) [place] [address] * (ABNORMAL) Hepatic Function Panel (08/13/2022 9:10 AM EST) [facility] Protein, Total 7.7 6.1 - 8.1 g/dL [facility] Albumin 4.8 3.6 - 5.1 g/dL [facility] Globulin 2.9 1.9 - 3.7 g/dL (calc) [facility] Albumin/Globulin Ratio 1.7 1.0 - 2.5 (calc) [facility] Bilirubin, Total 0.8 0.2 - 1.2 mg/dL [facility] Bilirubin, Direct 0.2 < OR = 0.2 mg/dL [facility] Bilirubin, Indirect 0.6 0.2 - 1.2 mg/dL (calc) [facility] Alkaline Phosphatase 64 31 - 125 U/L [facility] AST 46(H) 10 - 30 U/L [facility] ALT 70(H) 6 - 29 U/L [facility] Blood Venous blood specimen / Unknown 08/13/2022 9:10 AM EST 08/13/2022 9:11 AM EST Kevin Trejo MD LAB BLOOD ORDERABLES Final Result [address], [place] [address] [facility] [address] [facility] [address], (Nl2) [place] [address] * (ABNORMAL) CBC auto differential (08/13/2022 9:10 AM EST) White Blood Cell Count 2.0(L) 3.8 - 10.8 Thousand/ uL [facility] Red Blood Cell Count 4.09 3.80 - 5.10 Million/u L [facility] Hemoglobin 13.6 11.7 - 15.5 g/dL [facility] Hematocrit 38.9 35.0 - 45.0 % [facility] MCV 95.1 80.0 - 100.0 fL [facility] MCH 33.3(H) 27.0 - 33.0 pg [facility] MCHC 35.0 32.0 - 36.0 g/dL [facility] RDW 12.7 11.0 - 15.0 % [facility] Platelet Count 214 140 - 400 Thousand/ uL [facility] MPV 10.6 7.5 - 12.5 fL [facility] Absolute Neutrophils 996(L) 1,500 - 7,800 cells/uL [facility] Absolute Lymphocytes 686(L) 850 - 3,900 cells/uL [facility] Absolute Monocytes 258 200 - 950 cells/uL [facility] Absolute Eosinophils 40 15 - 500 cells/uL [facility] Absolute Basophils 20 0 - 200 cells/uL [facility] Neutrophils 49.8 % [facility] Lymphocytes 34.3 % [facility] Monocytes 12.9 % [facility] Eosinophils 2.0 % [facility] Basophils 1.0 % [facility] Blood Venous blood specimen / Unknown 08/13/2022 9:10 AM EST 08/13/2022 9:11 AM EST Kevin Trejo MD LAB BLOOD ORDERABLES Final Result [facility] [address] [facility] [address], [place] [address] [facility] [address] [facility] [address], (Nl2) [place] [address] documented in this encounter Visit Diagnoses Diagnosis Other drug-induced neutropenia (CMS/HCC)- Primary Elevated liver enzymes Other nonspecific abnormal serum enzyme levels documented in this encounter Additional Health Concerns Assessment Noted Time PHQ-9 Depression Total Score: 0 07/30/19 23 11:27 AM EST documented as of this encounter Care Teams Retail Marketing Coordinator Relationship Specialty Start Date End Date Kevin Trejo MD [address] [place] [phone] PCP - General Internal Medicine 05/14/16 documented as of this encounter
--- OUTSIDE RECORDS SUMMARY | 2024-08-11 12:28 | XMS_ITS | Encounter Summary ---
Author Organization [employer] Address 75 [facility] 7t [place] [address] Care Team Providers Care Customer Sales Representative Name Role Phone Kevin Trejo MD Primary Care Provider [phone] Reason for Visit * Reason Comments Pre-visit Planning SDOH negative, Tobac co screening positive. Encounter Details Date Type Department Care Team ([facility] Contact Info) Description 08/04/2024 Patient Outreach [facility] CHC MED & PEDS [address] [place], [place] [phone] Kevin Trejo MD [address] [place] [address] Pre-visit Planning (SDOH negative, Tobacco screening positive.) Social History Tobacco Use Types Packs/Day Years [...] Recorded Patient Health Questionnaire-2 Score 1 07/28/2023 Internet Access Answer Date Recorded Internet Access Q1 Yes 08/04/2024 Internet Access Q2 Not on file 08/04/2024 Comments No Sex and Gender Information Value Date Recorded Sex Assigned at Female 04/29/2022 10:30 AM EDT Legal Sex Female 10:30 AM EDT Gender Identity Female 04/29/2022 10:30 AM EDT Sexual Orientation Straight 04/29/2022 10 :30 AM EDT documented as of this encounter Progress Notes * Emelyn Torres - 08/04/2024 1:02 PM EST SLADE Montoya placed successful outbound call to patient for pre-visit planning. Patient name and confirmed. Patient confirms appt date and time, and has transportation arrangements. Biggest concern for appointment at this time is no concerns. Appropriate screenings completed in anticipation ofappointment. documented in this encounter Plan of Treatment Not on file documented as of this encounter Visit Diagnoses Not on filedocumented in this encounter Additional Health Concerns Assessment Noted Time PHQ-9 Depression Total Score: 8 07/28/19 24 10:28 AM EST documented as of this encounter Care Teams Customer Sales Representative Relationship Specialty Start Date End Date Kevin Trejo MD [address] [place] [phone] PCP - General Internal Medicine 05/14/16 documented as of this encounter
--- OUTSIDE RECORDS SUMMARY | 2024-08-11 12:28 | XMS_ITS | Encounter Summary ---
Author Organization [employer] Address [address] [facility] [address] [place] [address] Care Team Providers Care Veneer Jointer Operator Name Role Phone Kevin Trejo MD Primary Care Provider [phone] Reason for Referral * Imaging (Routine) - Closed Specialty Diagnoses / Procedures Referred By Jen jones Referred To Contact Radiology Diagnoses Transaminitis Procedures US Abdomen Complete Kevin Trejo MD [address] [place] [address] Phone: tel: fax: [address] Phone: tel: fax: Referral ID Status Reason Start Date Expiration Date Visits Re quested Visits Authorized [id number] Closed 07/30/2023 07/29/2024 1 1 Encounter Details Date Type Department Care Team (Late st Contact Info) Description 07/30/2023 Orders Only [facility] CHC MED & PEDS [address] [place], [place] [phone] Kevin Trejo MD [address] [place], [place] [phone] Transaminitis (Primary Dx) Social History Tobacco Use Types Packs/Day Years [...] as of this encounter Miscellaneous Notes * Result Encounter Note - Kevin Trejo MD - 07/30/2023 1:39 PM EST Please call. Work up for Hepatitis is neg except for Hep B surface antibody which is reactive. Pt might have been infected w/ Hep B in the past and has protection against it. I will call after reviewing the results of the US of the abdomen. documented in this encounter Plan of Treatment Not on file documented as of this encounter Procedures Procedure Name Priority Date/Time Associated Diagnosis Comments US ABDOMEN COMPLETE Routine 08/19/2023 8 :29 AM EST Transaminitis HEPATITIS PANEL, GENERAL Routine 07/31/2023 10:27 AM EST Transaminitis HEPATITIS A IGM ANTIBODY Routine 07/31/2023 10:27 AM EST Transaminitis HEPATITIS B CORE AB TOTAL Routine 07/31/2023 10:27 AM EST Transaminitis documented in this encounter Results * US Abdomen Complete (08/19/2023 8:29 AM EST) Anatomical Region Laterality Modality Abdomen Ultrasound 08/19/2023 8:29 AM EST Narrative 08/20/2023 7:29 PM EST ? [facility] ?[address] ?[place] [address] ? Ultrasound Report ? Signed ? Patient: Rosy Yanez ?MR#: [id number] ?? [id number] ? : 1990 ?Acct:[id number] ? Age/Sex: 32 / F ?ADM Date: 08/19/23 ? Loc: HO.US ? Attending Dr: Kevin Trejo MD ? Ordering Physician: Kevin Trejo MD ?? Date of Service: 08/19/23 ?? Procedure(s): US abdomen complete ?? Accession Number(s): [id number] ? cc: Kevin Trejo MD ? EXAMINATION: ?? US ABDOMEN COMPLETE ? CLINICAL INFORMATION: ?? Transaminitis. ? COMPARISON: ?? None available. ? TECHNIQUE: ?? Real-imaging of the abdominal viscera. Limited visualization due to ?? bowel gas. ? FINDINGS: ? PANCREAS: Limited visualization of pancreatic tail and head. Imaged ?? portion of pancreatic body is unremarkable. ? ABDOMINAL AORTA: Nonaneurysmal. ? INFERIOR VENA CAVA: Visualized portions are normal. ? LIVER: Liver measures 12.2 cm. Mildly increased hepatic parenchymal ?? heterogeneity and echogenicity could be associated with hepatocellular ?? disease/hepatic steatosis and substantially limits visualization. ?? Correlation with liver function tests and clinical exam recommended to ?? determine further management. ? GALLBLADDER: No gallstones. No gallbladder wall thickening. ? COMMON BILE DUCT: Normal in caliber measuring 0.3 cm in diameter. ? RIGHT KIDNEY: Multiple tiny echogenic foci, possibly representing tiny ?? calcifications. No hydronephrosis. Limited visualization. The kidney ?? measures 11.8 cm in maximum dimension. ? LEFT KIDNEY: Multiple tiny echogenic foci, possibly representing tiny ?? calcifications. No hydronephrosis. Limited visualization. The kidney ?? measures 10.8 cm in maximum dimension. ? SPLEEN: The spleen measures 12.1 cm in maximum dimension. Spleen ?? borderline enlarged. ? FREE FLUID: None. ? US/US abdomen complete ?? IMPRESSION: ?? 1. Mildly increased hepatic parenchymal heterogeneity and echogenicity ?? could be associated with hepatocellular disease/hepatic steatosis and ?? substantially limits visualization. Correlation with liver function ?? tests and clinical exam recommended to determine further management. ? 2. Multiple tiny echogenic foci in the kidneys, possibly representing ?? tiny calcifications. No hydronephrosis. Limited visualization. ? Dictated By: ?Jocelin Hayward MD ? Signed By: ?<Electronically signed by Jocelin Hayward MD in OV> ? 08/20/231924 ? DD/ 0829 ? TD/TT: ? [place] Blocker: ? Procedure Note Boaz Delaney - 08/20/2023 [place] [address] Ultrasound Report Signed Patient: Mikaela Yanez#: [id number] : 1990Acct:[id number] Age/Sex: 32 / FADM Date: 08/19/23 Loc: HO.US Attending Dr: Kevin Trejo MD Ordering Physician: Kevin Trejo MD Date of Service: 08/19/23 Procedure(s): US abdomen complete Accession Number(s): [id number] cc: Kevin Trejo MD EXAMINATION: US ABDOMEN COMPLETE CLINICAL INFORMATION: Transaminitis. COMPARISON: None available. TECHNIQUE: Real-imaging of the abdominal viscera. Limited visualization due to bowel gas. FINDINGS: PANCREAS: Limited visualization of pancreatic tail and head. Imaged portion of pancreatic body is unremarkable. ABDOMINAL AORTA: Nonaneurysmal. INFERIOR VENA CAVA: Visualized portions are normal. LIVER: Liver measures 12.2 cm. Mildly increased hepatic parenchymal heterogeneity and echogenicity could be associated with hepatocellular disease/hepatic steatosis and substantially limits visualization. Correlation with liver function tests and clinical exam recommended to determine further management. GALLBLADDER: No gallstones. No gallbladder wall thickening. COMMON BILE DUCT: Normal in caliber measuring 0.3 cm in diameter. RIGHT KIDNEY: Multiple tiny echogenic foci, possibly representing tiny calcifications. No hydronephrosis. Limited visualization. The kidney measures 11.8 cm in maximum dimension. LEFT KIDNEY: Multiple tiny echogenic foci, possibly representing tiny calcifications. No hydronephrosis. Limited visualization. The kidney measures 10.8 cm in maximum dimension. SPLEEN: The spleen measures 12.1 cm in maximum dimension. Spleen borderline enlarged. FREE FLUID: None. US/US abdomen complete IMPRESSION: 1. Mildly increased hepatic parenchymal heterogeneity and echogenicity could be associated with hepatocellular disease/hepatic steatosis and substantially limits visualization. Correlation with liver function tests and clinical exam recommended to determine further management. 2. Multiple tiny echogenic foci in the kidneys, possibly representing tiny calcifications. No hydronephrosis. Limited visualization. Dictated By: Jocelin Hayward MD Signed By: <Electronically signed by Jocelin Hayward MD in OV> 08/20/231924 DD/ 8 TD/TT: [place] Blocker: us Kevin Trejo MD IMG US PROCEDURES Final Res ult * Hepatitis B Core Antibody, Total (07/31/2023 10:27 AM EST) Hepatitis B Core Antibody Nonreactive Nonreactive [facility] Blood Venous blood specimen / Unknown 07/31/2023 10:27 AM EST 07/31/2023 2:14 PM EST us Kevin Trejo MD LAB BLOOD ORDERABLES Final Result [facility] [address] [place] [phone] * Hepatitis A,B,C Profile (07/31/2023 10:27 AM EST) Hepatitis A IgM Nonreactive Nonreactive [facility] Comment:IgM antibodies to JAMES V not detected; does not exclude earlyacute or recovered HAV infection. ~Hepatitis B Surface Antibody REACTIVE Nonreactive [facility] Comment:REACTIVE: > 11.99 mI U/mL Hepatitis B Core Antibody Nonreactive Nonreactive [facility] Hepatitis C Antibody Nonreactive Nonreactive [facility] Comment:Antibodies to HCV no t detected; does not exclude early acuteHCV infection. Hepatitis B Surface Ag Negative Negative [facility] Blood Venous blood specimen / Unknown 07/31/2023 10:27 AM EST 07/31/2023 2:11 PM EST Kevin Trejo MD LAB BLOOD ORDERABLES Final Result Performing Organization Address [facility] Co de Phone Number [facility] [address] [place] [phone] * Hepatitis A IgM (07/31/2023 10:27 AM EST) Hepatitis A IgM Nonreactive Nonreactive [facility] Comment:IgM antibodies to JAMES V not detected; does not exclude earlyacute or recovered HAV infection. Blood Venous blood specimen / Unknown 07/31/2023 10:27 AM EST 07/31/2023 2:11 PM EST Kevin Trejo MD LAB BLOOD ORDERABLES Final Result Performing Organization Address [facility] Co de Phone Number [facility] [address] [place] [phone] documented in this encounter Visit Diagnoses Diagnosis Transaminitis- Primary Nonspecific elevation of levels of transaminase or lactic acid dehydrogenase (LDH) documented in this encounter Additional Health Concerns Assessment Noted Time PHQ-9 Depression Total Score: 8 07/28/19 24 10:28 AM EST documented as of this encounter Care Teams Veneer Jointer Operator Relationship Specialty Start Date End Date Kevin Trejo MD [address] [place] [phone] PCP - General Internal Medicine 05/14/16 documented as of this encounter
--- OUTSIDE RECORDS SUMMARY | 2024-08-11 12:28 | XMS_ITS | Encounter Summary ---
Author Organization [employer] Address [address] [facility] [address] 7t [place] [address] Care Team Providers Care Generator Assembler Name Role Phone Kevin Trejo MD Primary Care Provider [phone] Encounter Details Date Type Department Care Team (Latest Contact Info) Description 08/11/2024 Travel Social History Tobacco Use Types Packs/Day Years Used Date Smoking Tobacco: Every Day Cigarettes Passive Smoke Exposure: Never Smokeless Tobacco: Never Comments:3-4 cig during the week ends. Alcohol [...] documented as of this encounter Care Teams Generator Assembler Relationship Specialty Start Date End Date Kvein Trejo MD [address] [place] [address] PCP - General Internal Medicine 05/14/16 documented as of this encounter
[2024-08-12 14:24] LABS: MANUAL DIFF FLAG NO
[2024-08-12 14:30] LABS: Basophils Percent Auto 0.5 % (0-2); Eosinophils Absolute Auto 0.1 X10*3/uL (0.0-0.4); Eosinophils Percent Auto 1.4 % (0-4); Hematocrit 36.9 % (37.0-47.0); Hemoglobin 12.8 g/dl (12.0-16.0); Imm Gran Abs Auto 0.03 X10*3/uL (0.00-0.03); Imm Gran Pct Auto 0.5 % (0.0-0.4); Lymphocytes Absolute Auto 2.1 X10*3/uL (1.2-4.9); Lymphocytes Percent Auto 36.3 % (20-40); Mean Corpuscular HGB Conc 34.7 g/dl (31.0-35.0); Mean Corpuscular Hemoglobin 32.2 pg (27.0-33.0); Mean Corpuscular Volume 92.9 fL (80.0-98.0); Mean Platelet Volume 10.6 fL (9.4-12.3); Monocytes Absolute Auto 0.6 X10*3/uL (0.1-1.2); Monocytes Percent Auto 9.7 % (2-11); Neutrophils Absolute Auto 3.1 x10*3/uL (2.0-8.3); Neutrophils Percent Auto 51.6 % (45-73); Platelet Count 261 X10*3/uL (160-400); Red Blood Count 3.97 X10*6/uL (4.20-5.50); White Blood Count 5.9 X10*3/uL (4.8-10.8)
[2024-08-12 14:42] LABS: Alanine Aminotransferase 17 U/L (0-31); Albumin Level 4.1 g/dL (3.5-5.0); Alkaline Phosphatase 71 U/L (39-117); Anion Gap 10 (12-20); Aspartate Amino Transferase 18 U/L (5-31); Bilirubin Total 0.5 mg/dL (0.0-1.0); Blood Urea Nitrogen 14 mg/dL (9-16); Calcium 9.1 mg/dL (8.4-10.2); Carbon Dioxide 26 mmol/L (22-29); Chloride 105 mmol/L (96-108); Estimated Glomerular Filt Rate > 60; Glucose Random 78 mg/dL (60-115); Potassium 4.4 mmol/L (3.3-5.1); Sodium 137 mmol/L (135-145); Total Protein 7.4 g/dL (6.5-8.0)
[2024-08-12 14:56] LABS: TSH reflex Free T4 2.16 uIU/mL (0.32-4.0)
== END 2024-08-11 10:43 | disposition home or self-care (01) ==
LOC: HO.CHCLDS 10:42
PROVIDERS: Visit Provider Internal Medicine
DX: Z00.00 Encounter for general adult medical examination without abnormal findings (principal)
CPT/HCPCS: 36415; 80053; 84443; 85025

== ENCOUNTER 2025-01-31 11:02 | Outpatient (REF) | payer MEDICAID, OTHER, SELFPAY ==
--- NOTE | ~2025-01-31 | XR_ITS ---
EXAMINATION: XR CHEST CLINICAL INFORMATION: cough x 10 days COMPARISON: None available. TECHNIQUE: 2 views of the chest were obtained. FINDINGS: Wedge-shaped the ill marginated opacity, left upper lung lobe. No pleural effusion or pneumothorax. Cardiomediastinal silhouette size is normal. S-shaped curvature of the thoracolumbar spine. XR/XR chest 2V IMPRESSION: Acute airspace disease, left upper lung lobe. Recommend follow-up until resolution. Mild scoliosis. Electronically signed by: Andrew Lucas MD 01/31/2025 11:21 AM EDT
--- OUTSIDE RECORDS SUMMARY | 2025-01-31 12:02 | XMS_ITS | Encounter Summary ---
Author Organization [employer] Address [address] [facility] 7t [place] [address] Care Team Providers Care Furnace Packer Name Role Phone Kevin Trejo MD Primary Care Provider [phone] Reason for Referral * Imaging (Routine) - Closed Specialty Diagnoses / Procedures Referred By Jen jones Referred To Contact Diagnoses Painful breasts Segmental fibroadenosis of breast, unspecified laterality Procedures BI US Breast Complete Right Karen Roblero MD [address] [place] [address] Phone: tel: fax: [address] Phone: tel: fax: Referral ID Status Reason Start Date Expiration Date Visits Re quested Visits Authorized [id number] Closed 12/11/2022 06/09/2023 1 1 * Imaging (Routine) - Closed Specialty Diagnoses / Procedures Referred By Jen jones Referred To Contact Diagnoses Painful breasts Segmental fibroadenosis of breast, unspecified laterality Procedures BI US Breast Complete Left Karen Roblero MD [address] [place] [address] Phone: tel: fax: [address] Phone: tel: fax: Referral ID Status Reason Start Date Expiration Date Visits Re quested Visits Authorized [id number] Closed 12/11/2022 06/09/2023 1 1 * Imaging (Routine) - Closed Specialty Diagnoses / Procedures Referred By Contjennifer t Referred To Contact Diagnoses Painful breasts Segmental fibroadenosis of breast, unspecified laterality Procedures BI Mammogram Diagnostic Bilateral Karen Roblero MD [address] [place] [address] Phone: tel: fax: [address] Phone: tel: fax: Referral ID Status Reason Start Date Expiration Date Visits Re quested Visits Authorized [id number] Closed 12/11/2022 06/09/2023 1 1 Encounter Details Date Type Department Care Team (Late st Contact Info) Description 12/11/2022 Orders Only [facility] CHC MED & PEDS [address] [place] [address] Karen Roblero MD [address] [place] [address] Painful breasts (Primary Dx); Segmental fibroadenosis of [...] as of this encounter Plan of Treatment Upcoming Encounters Date Type Department Care Team (Late st Contact Info) Description 02/01/2025 10:30 AM EDT Procedure Visit [facility] MEDICINE [address] [place] [address] Rebeka Lopez CNM [address] [place] [address] documented as of this encounter Visit Diagnoses Diagnosis Painful breasts- Primary Mastodynia Segmental fibroadenosis of breast, unspecified laterality documented in this encounter Additional Health Concerns Assessment Noted Time PHQ-9 Depression Total Score: 0 07/30/19 23 11:27 AM EST documented as of this encounter Care Teams Furnace Packer Relationship Specialty Start Date End Date Kevin Trejo MD [address] [place] [phone] PCP - General Internal Medicine 05/14/16 documented as of this encounter
== END 2025-01-31 11:03 | disposition home or self-care (01) ==
LOC: HO.HHCX 11:02
PROVIDERS: Visit Provider Internal Medicine
DX: Z13.89 Encounter for screening for other disorder (principal)
CPT/HCPCS: 71046

== ENCOUNTER → 2025-01-31 11:03 | Outpatient (BNV) | payer SELFPAY | PROVIDERS: Visit Provider Radiology Diagnostic Radiology | DX: J84.89 Other specified interstitial pulmonary diseases (principal) | CPT/HCPCS: 71046 ==

== ENCOUNTER 2025-01-31 11:21 | Outpatient (REF) | payer MEDICAID, OTHER, SELFPAY ==
[2025-01-31 13:22] LABS: MANUAL DIFF FLAG NO
[2025-01-31 13:45] LABS: Hematocrit 38.5 % (37.0-47.0); Hemoglobin 13.0 g/dl (12.0-16.0); Imm Gran Abs Auto 0.02 X10*3/uL (0.00-0.03); Imm Gran Pct Auto 0.3 % (0.0-0.4); Lymphocytes Absolute Auto 1.3 X10*3/uL (1.2-4.9); Mean Corpuscular HGB Conc 33.8 g/dl (31.0-35.0); Mean Corpuscular Hemoglobin 31.0 pg (27.0-33.0); Mean Corpuscular Volume 91.7 fL (80.0-98.0); NRBC Abs Auto 0.000 X10*3/uL (0.0-0.012); NRBC Pct Auto 0.0 /100WBC (0.0-0.2); Platelet Count 385 X10*3/uL (160-400); Red Blood Count 4.20 X10*6/uL (4.20-5.50); White Blood Count 7.0 X10*3/uL (4.8-10.8)
== END 2025-01-31 11:22 | disposition home or self-care (01) ==
LOC: HO.HHCL 11:21
PROVIDERS: PCP Internal Medicine; Visit Provider Internal Medicine
DX: R05.9 Cough, unspecified (principal)
CPT/HCPCS: 36415; 71046; 85025; 85652; 86140

== ENCOUNTER 2025-02-01 16:08 | Outpatient (REF) | payer MEDICAID, OTHER, SELFPAY ==
--- OUTSIDE RECORDS SUMMARY | 2025-02-01 16:15 | XMS_ITS | Encounter Summary ---
Author Organization [employer] Address [address] [facility] [address] [place] [address] Care Team Providers Care Can Line Operator Name Role Phone Kevin Trejo MD Primary Care Provider [phone] Reason for Referral * Imaging (Routine) - Closed Specialty Diagnoses / Procedures Referred By Jen jones Referred To Contact Diagnoses Painful breasts Segmental fibroadenosis of breast, unspecified laterality Procedures BI US Breast Complete Right Karen Roblero MD [address] [place] [address] Phone: tel: fax: [address] Phone: tel: fax: Referral ID Status Reason Start Date Expiration Date Visits Re quested Visits Authorized [id number] Closed 12/11/2022 06/09/2023 1 1 * Imaging (Routine) - Closed Specialty Diagnoses / Procedures Referred By Jen jones Referred To Contact Diagnoses Painful breasts Segmental fibroadenosis of breast, unspecified laterality Procedures BI US Breast Complete Left Karen Roblero MD [address] [place] [address] Phone: tel: fax: [address] Phone: tel: fax: Referral ID Status Reason Start Date Expiration Date Visits Re quested Visits Authorized [id number] Closed 12/11/2022 06/09/2023 1 1 * Imaging (Routine) - Closed Specialty Diagnoses / Procedures Referred By Contjennifer t Referred To Contact Diagnoses Painful breasts Segmental fibroadenosis of breast, unspecified laterality Procedures BI Mammogram Diagnostic Bilateral Karen Roblero MD [address] [place] [address] Phone: tel: fax: [address] Phone: tel: fax: Referral ID Status Reason Start Date Expiration Date Visits Re quested Visits Authorized [id number] Closed 12/11/2022 06/09/2023 1 1 Encounter Details Date Type Department Care Team (Late st Contact Info) Description 12/11/2022 Orders Only [facility] [address] [place] [address] Karen Roblero MD [address] [place] [address] Painful breasts (Primary Dx); Segmental fibroadenosis of [...] documented as of this encounter Care Teams Can Line Operator Relationship Specialty Start Date End Date Kevin Trejo MD [address] [place] [id number] PCP - General Internal Medicine 05/14/16 documented as of this encounter
== END 2025-02-01 16:09 | disposition home or self-care (01) ==
LOC: HO.HHCLNP 16:08
PROVIDERS: Visit Provider Advanced Practice Midwife
DX: Z12.4 Encounter for screening for malignant neoplasm of cervix (principal)
CPT/HCPCS: 87626; 88175

== ENCOUNTER 2025-02-17 11:17 | Outpatient (REF) | payer MEDICAID, OTHER, SELFPAY ==
--- NOTE | ~2025-02-17 | XR_ITS ---
EXAMINATION: XR CHEST CLINICAL INFORMATION: opacity of the left upper lung COMPARISON: Radiographs on January 31, 2025. TECHNIQUE: 2 views of the chest were obtained. FINDINGS: Lungs: Interval improvement, but still persistent opacity of the left upper lung. Right lung remains clear. Pleura: No pleural effusion or pneumothorax. Heart/Mediastinum: Cardiomediastinal silhouette is within normal limits. Bones: No acute findings. XR/XR chest 2V IMPRESSION: Interval improvement, but persistent opacity of the left upper lung. Recommend follow-up until resolution as previously stated. Electronically signed by: Robbie Lilly MD 02/17/2025 12:33 PM EDT
--- OUTSIDE RECORDS SUMMARY | 2025-02-17 13:01 | XMS_ITS | Encounter Summary ---
Author Organization [employer] Address [address] [facility] [address] [place] [address] Care Team Providers Care Merchandise Flow Team Leader Name Role Phone Kevin Trejo MD Primary Care Provider [phone] Reason for Referral * Imaging (Routine) - Closed Specialty Diagnoses / Procedures Referred By Jen jones Referred To Contact Diagnoses Painful breasts Segmental fibroadenosis of breast, unspecified laterality Procedures BI US Breast Complete Right Karen Roblero MD [address] [place] [address] Phone: tel: fax: [address] Phone: tel: fax: Referral ID Status Reason Start Date Expiration Date Visits Re quested Visits Authorized [id number] Closed 12/11/2022 06/09/2023 1 1 * Imaging (Routine) - Closed Specialty Diagnoses / Procedures Referred By Jen jones Referred To Contact Diagnoses Painful breasts Segmental fibroadenosis of breast, unspecified laterality Procedures BI US Breast Complete Left Karen Roblero MD [address] [place] [address] Phone: tel: fax: [address] Phone: tel: fax: Referral ID Status Reason Start Date Expiration Date Visits Re quested Visits Authorized [id number] Closed 12/11/2022 06/09/2023 1 1 * Imaging (Routine) - Closed Specialty Diagnoses / Procedures Referred By Contjennifer t Referred To Contact Diagnoses Painful breasts Segmental fibroadenosis of breast, unspecified laterality Procedures BI Mammogram Diagnostic Bilateral Karen Roblero MD [address] [place] [address] Phone: tel: fax: [address] Phone: tel: fax: Referral ID Status Reason Start Date Expiration Date Visits Re quested Visits Authorized [id number] Closed 12/11/2022 06/09/2023 1 1 Encounter Details Date Type Department Care Team (Late st Contact Info) Description 12/11/2022 Orders Only [facility] P[facility] [address] [place] [address] Karen Roblero MD [address] [place] [address] Painful breasts (Primary Dx); Segmental fibroadenosis of [...] documented as of this encounter Care Teams Merchandise Flow Team Leader Relationship Specialty Start Date End Date Kevin Trejo MD [address] [place] [id number] PCP - General Internal Medicine 05/14/16 documented as of this encounter
== END 2025-02-17 11:18 | disposition home or self-care (01) ==
LOC: HO.HHCL 11:17
PROVIDERS: PCP Internal Medicine; Visit Provider Internal Medicine
DX: R05.9 Cough, unspecified (principal)
CPT/HCPCS: 71046

== ENCOUNTER → 2025-02-17 11:21 | Outpatient (BNV) | payer SELFPAY | PROVIDERS: PCP Internal Medicine; Visit Provider Radiology Body Imaging | DX: R91.8 Other nonspecific abnormal finding of lung field (principal) | CPT/HCPCS: 71046 ==

== ENCOUNTER 2025-02-23 08:56 | Outpatient (REF) | payer MEDICAID, OTHER, SELFPAY ==
--- OUTSIDE RECORDS SUMMARY | 2025-02-23 09:31 | XMS_ITS | Clinical Summary ---
Author Organization [employer] Address [address] [facility] [address] [place] [address] Care Team Providers Care Acid Purifier Name Role Phone Kevin Trejo MD Primary Care Provider [phone] Allergies No known active allergies Medications fish oil (fish oil) 1000 MG capsule Take 1 capsule orally bid 60 capsule 3 12/04/19 23 Active diphenhydrAMINE (BENADryl) 25 MG tablet Take 1 tablet (25 mg) by mouth if needed at bedtime (cough). 30 tablet 06/17/20 23 Active dicyclomine (Bentyl) 10 MG capsuleIndicati ons:Lower abdominal pain,Diarrhea, unspecified type Take 1 capsule (10 mg) by mouth 4 times daily. 120 capsule 11 04/21/20 24 025 Active nicotine polacrilex (Nicorette) 4 MG gumIndications: Smoking Chew 1 each (4 mg) if needed for smoking cessation. 100 each 08/11/19 25 Active azithromycin (Zithromax Z-Bolivar) 250 MG tabletIndicatio ns:Cough in adult patient Take 2 tablets once on day 1, then 1 tablet once a day for 4 days. 6 tablet 02/01/20 25 Active guaiFENesin (Mucinex) 600 MG 12 hr tabletIndicatio ns:Cough in adult patient Take 2 tablets (1,200 mg) by mouth 2 times daily. Do not crush, chew, or split. 120 tablet 11 02/01/20 25 026 Active nicotine (Nicoderm CQ) 7 MG/24HR patchIndication s:Cigarette nicotine dependence in remission Place 1 patch on the skin 1 (one) time each day at the same time. 30 patch 02/18/20 25 025 Active baclofen (Lioresal) 10 MG tabletIndicatio ns:Leg cramps Take 1 tablet (10 mg) by mouth 3 times daily. 90 tablet 02/19/20 25 025 Active azithromycin (Zithromax Z-Bolivar) 250 MG tablet Take 2 tablets once on day 1, then 1 tablet once a day for 4 days. 6 tablet 06/17/20 23 025 Discontinued(Re order (will not trigger notification to Pharmacy)) tiZANidine (Zanaflex) 2 MG tabletIndicatio ns:Muscle cramps TAKE 1 TABLET BY MOUTH EVERY 6 HOURS NEEDED FOR MUSCLE SPASMS FOR UP TO 10 DAYS 30 tablet 01/08/20 25 025 Discontinued(Th erapy completed) Active Problems Problem Noted Date Diagnosed Date Cervical cancer screening 02/01/2025 Assessment & Plan (02/01/2025 10:51 AM EDT): Pap obtained today If results are normal will obtain pap with cotest in 1 year. Checking of intrauterine device 02/01/2025 Assessment & Plan (02/01/2025 10:51 AM EDT): IUD strings visualized a 1-2 cm in length Pt happy with method and would like to continue with method Bacterial conjunctivitis 12/12/2017 Encounters Date Type Department Care Team Description 02/18/2025 Orders Only [facility] [address], [place] [phone] Kevin Trejo MD Leg cramps (Primary Dx) 02/18/2025 Results Follow-Up [facility] [address] [place] [address] Wing Mateusz, RN XR Chest 2 Views 02/17/2025 10:30 AM EDT Office Visit [facility] [address], [place] [phone] Kevin Trejo MD Cough in adult patient (Primary Dx); Cigarette nicotine dependence in remission 02/17/2025 Travel 02/14/2025 Telephone [facility] [address] [place] [address] César Sales CNM Results 02/10/2025 Travel 02/09/2025 Orders Only [address] [address] César Sales CNM Cervical high risk human papillomavirus (HPV) DNA test positive (Primary Dx); LGSIL on Pap smear of cervix 02/09/2025 Results Follow-Up [address] [address] César Sales CNM Pap Smear 02/07/2025 Results Follow-Up [address] [address] César Sales CNM HPV DNA, Low/High Risk 02/03/2025 Telephone [facility] [address] [place] [address] Kevin Trejo MD ER Follow-up; Care Coordination 02/03/2025 Results Follow-Up [facility] [address] [place] [address] Dana Ferrera, KARIN XR Chest 2 Views 02/02/2025 Travel 02/02/2025 Telephone [facility] [address] [place] [address] Kevin Trejo MD Nurse Triage 02/01/2025 10:30 AM EDT Procedure Visit [address] [address] César Sales CNM Cervical cancer screening (Primary Dx); Checking of intrauterine device 02/01/2025 Orders Only [address] [address] César Sales CNM 02/01/2025 Travel 01/31/2025 10:20 AM EDT Office Visit [facility] [address] [place] [phone] Kevin Trejo MD Cough in adult patient 01/31/2025 Travel 01/31/2025 Telephone [facility] [address] [place] [address] Kevin Trejo MD Nurse Triage 01/07/2025 Refill [facility] [address] [place] [address] Kevin Trejo MD Muscle cramps from Last 3 Months Immunizations Immunization Administration Dates Next Due Hep B, adult 08/11/2024 Tdap 08/11/2024 Social History Tobacco Use Types Packs/Day Years Used Date Smoking Tobacco: Former Cigarettes Passive Smoke Exposure: Never Smokeless Tobacco: Never Tobacco Cessation:Counseling Given: Not Answered Comments:3-4 cig during the [...] t he electric, gas, oil or water [employer] threatened to shut off services in your home? No 08/04/2024 Depression Answer Date Recorded Patient Health Questionnaire-2 Score 0 08/11/2024 Internet Access Answer Date Recorded Internet Access Q1 Yes 08/04/2024 Internet Access Q2 Not on file 08/04/2024 Comments No Intention Date Recorded No desire to become (finding) 0 02/01/2025 Sex and Gender Information Value Date Recorded Sex Assigned at Female 04/29/2022 10:30 AM EDT Legal Sex Female 10:30 AM EDT Gender Identity Female 04/29/2022 10:30 AM EDT Sexual Orientation Straight 04/29/2022 10 :30 AM EDT Last Filed Vital Signs Vital Sign Reading Time Taken Comments Blood Pressure 114/69 02/17/2025 10:32 AM EDT Pulse 72 02/17/2025 10:32 AM EDT Temperature 36.5 C (97.7 F) 02/17/2025 10:32 AM EDT Respiratory Rate 20 02/17/2025 10:32 AM EDT Oxygen Saturation 98% 02/17/2025 10:32 AM EDT Inhaled Oxygen Concentration - - Weight 71.2 kg (157 lb) 02/17/2025 10:32 AM EDT Height 171 cm (5' 7.32 ) 02/17/2025 10:32 AM EDT Body Mass Index 24.36 02/17/2025 10:32 AM EDT Plan of Treatment Health Maintenance Due Date Last Done Comments HPV Vaccines (1 - 3-dose series) 10/26/2006 Dental Oral Exam 10/13/2024 04/13/2024, 12/20/2022 Colposcopy 02/02/2025 Influenza Vaccine (#1) 2025 Dental Prophylaxis 03/12/2025 09/08/2024 Dental X-Ray: Bitewings 04/14/2025 04/13/20 24, 03/19/2024, 12/20/2022 SDOH Screening 08/04/2025 08/04/2024 Alcohol/Substance Use Screening 08/11/2025 08/11/2024 COVID-19 Vaccine (1 - 2023-2 5 season) 2025 Postponed from 02/29/2024 (Patient Refused) Depression Screening 08/11/2025 08/11/2024, 08/11/2024 Dental X-Ray: Full Mouth 12/21/2025 12/20/2022 Cervical Cancer Screening 02/01/2026 Family Planning (PISQ) 02/01/2026 02/01/2025 HPV/Cotest 02/01/2026 02/01/2025, 01/29/2024, 01/28/2023 Pap Smear 02/01/2026 02/01/2025, 01/29/2024, 01/28/2023 Disability Screening 02/10/2026 02/10/2025 Tobacco Screening 02/17/2026 02/17/2025 DTaP/Tdap/Td Vaccines (2 - T d or Tdap) 08/11/2034 08/11/2024 Zoster Vaccines (1 of 2) 10/26/2041 RSV Patients and Patients Aged 60 years or older (1 - 1-dose 75+ series) 10/26/2066 HIV Screening Completed 07/28/2023 Hepatitis C Screening Completed 07/31/2023 , 08/16/2022 Hepatitis B Vaccines Discontinued 08/11/2024 HIB Vaccines Aged Out No longer eligi ble based on patient's age to complete this topic Hepatitis A Vaccines Aged Out No long er eligible based on patient's age to complete this topic IPV Vaccines Aged Out No longer eligi ble based on patient's age to complete this topic Meningococcal B Vaccine Aged Out No l onger eligible based on patient's age to complete this topic Meningococcal Vaccine Aged Out No chrissie daryl eligible based on patient's age to complete this topic Pneumococcal Vaccine: Pediatrics (0 to 5 Years) and At-Risk Patients (6 to 49) Years Aged Out No longer eligible b ased on patient's age to complete this topic RSV under 20 months Aged Out No longe r eligible based on patient's age to complete this topic Rotavirus Vaccines Aged Out No longer eligible based on patient's age to complete this topic Procedures Procedure Name Priority Date/Time Associated Diagnosis Comments XR CHEST 2 VIEWS Routine 02/17/2025 11:4 2 AM EDT Cough in adult patient PAP SMEAR Routine 02/01/2025 10:40 AM EDT Cervical cancer screening HPV DNA, LOW/HIGH RISK Routine 02/01/2025 10:40 AM EDT SED RATE BY MODIFIED WESTERGREN Routine 01/31/2025 11:30 AM EDT Cough in adult patient C-REACTIVE PROTEIN Routine 01/31/2025 11 :30 AM EDT Cough in adult patient CBC WITH AUTO DIFFERENTIAL Routine 01/31/2025 11:30 AM EDT Cough in adult patient POCT INFLUENZA B (ID NOW RAPID MOLECULAR) Routine 01/31/2025 10:55 AM EDT Cough in adult patient POCT INFLUENZA A (ID NOW RAPID MOLECULAR) Routine 01/31/2025 10:55 AM EDT Cough in adult patient POCT RAPID COVID ANTIGEN Routine 01/31/2025 10:37 AM EDT Cough in adult patient XR CHEST 2 VIEWS Routine 01/31/2025 10:2 3 AM EDT Cough in adult patient PROPHYLAXIS - ADULT Routine 09/08/2024 1 0:00 AM EDT BITEWINGS - 4 RADIOGRAPHIC IMAGES Routine 04/13/2024 2:00 PM EDT PERIODIC ORAL EVALUATION - ESTABLISHED PATIENT Routine 04/13/2024 2:00 PM EDT HEPATITIS PANEL, GENERAL Routine 07/31/2023 10:27 AM EST Transaminitis HIV 1/2 ANTIGEN/ANTIBODY, FOURTH GENERATION W/RFL Routine 07/28/2023 10:33 AM EST Annual physical exam Muscle spasm of back Screen for STD (sexually transmitted disease) INTRAORAL - COMPLETE SERIES OF RADIOGRAPHIC IMAGES Routine 12/20/2022 10:00 AM EDT from Last 3 Months or Most Recently Relevant to Health Maintenance Results * XR Chest 2 Views (02/17/2025 11:42 AM EDT) Only the most recent of2 resultswithin the time period is included. Anatomical Region Laterality Modality Chest Radiographic Nati ging 02/17/2025 11:4 2 AM EDT Narrative 02/17/2025 12:36 PM EDT [address] [address] XRay Report Signed Patient: Rosy Yanez MR#: [id number] 1215 : 1990 Acct:[id number] Age/Sex: 34 / F ADM Date: 02/17/25 Loc: [facility] Attending Dr: Kevin Trejo MD Ordering Physician: Kevin Trejo MD Date of Service: 02/17/25 Procedure(s): XR chest 2V Accession Number(s): [id number] cc: Kevin Trejo MD EXAMINATION: XR CHEST CLINICAL INFORMATION: opacity of the left upper lung COMPARISON: Radiographs on January 31, 2025. TECHNIQUE: 2 views of the chest were obtained. FINDINGS: Lungs: Interval improvement, but still persistent opacity of the left upper lung. Right lung remains clear. Pleura: No pleural effusion or pneumothorax. Heart/Mediastinum: Cardiomediastinal silhouette is within normal limits. Bones: No acute findings. XR/XR chest 2V IMPRESSION: Interval improvement, but persistent opacity of the left upper lung. Recommend follow-up until resolution as previously stated. Electronically signed by: Robbie Lilly MD 02/17/2025 12:33 PM EDT Dictated By: Robbie Lilly MD Signed By: <Electronically signed by Robbie Lilly MD in OV> 02/17/25 1233 DD/ 1142 TD/TT: 02/17/25 1146 Mechanical Fitter: Procedure Note Donotuseinterpreter, Image - 02/17/2025 [place] [address] XRay Report Signed Patient: Rosy YanezMR#: [id number] 1215 : 1990Acct:[id number] Age/Sex: 34 / FADM Date: 02/17/25 Loc: [facility] Attending Dr: Kevin Trejo MD Ordering Physician: Kevin Trejo MD Date of Service: 02/17/25 Procedure(s): XR chest 2V Accession Number(s): [id number] cc: Kevin Trejo MD EXAMINATION: XR CHEST CLINICAL INFORMATION: opacity of the left upper lung COMPARISON: Radiographs on January 31, 2025. TECHNIQUE: 2 views of the chest were obtained. FINDINGS: Lungs: Interval improvement, but still persistent opacity of the left upper lung. Right lung remains clear. Pleura: No pleural effusion or pneumothorax. Heart/Mediastinum: Cardiomediastinal silhouette is within normal limits. Bones: No acute findings. XR/XR chest 2V IMPRESSION: Interval improvement, but persistent opacity of the left upper lung. Recommend follow-up until resolution as previously stated. Electronically signed by: Robbie Lilly MD 02/17/2025 12:33 PM EDT RP Dictated By: Robbie Lilly MD Signed By: <Electronically signed by Robbie Lilly MD in OV> 02/17/25 1233 DD/ 1142 TD/TT: 02/17/25 1146 Mechanical Fitter: us Kevin Trejo MD IMG XR PROCEDURES Final Res ult * (ABNORMAL) HPV DNA, Low/High Risk (02/01/2025 10:40 AM EDT) Pathologist [facility] HPV High Risk Positive(A) Negative [facility] HPV Genotype 16 Negative Negative [facility] HPV Genotype 18 Negative Negative [facility] Comment:HPV testing performe d at [facility] (CLIA#[id number]), [address] [place] [address].Testing for HPV was performed using the Mima WILLIE 6800system. The presence of HPV in the female genital tract isassociated with a number of diseases, including cervicalcarcinoma. The HPV DNA high risk pool tests for HPV 31, 33,35, 39, 45, 51, 52, 56, 58, 59, 66 and 68. The testing forHPV 16 and 18 genotypes has also been performed. A positiveresult indicates detection of nucleic acid sequences fromone or more subtypes, whereas a negative result indicatessuch sequences were not detected. 02/01/2025 10:4 0 AM EDT 02/02/2025 8:30 AM EDT César Sales CNM LAB BLOOD ORDERABLES Jocelyn malagon Result [facility] [address] [place] [address] [phone] * Pap Smear (02/01/2025 10:40 AM EDT) Swab Cervix uteri structure / Unknown 02/01/2025 10:40 AM EDT 02/02/2025 8:30 AM EDT Narrative [facility] - 02/09/2025 8:54 AM EDT ----- ------- Name: Rosy Yanez Age/Sex: 34/F : 1990 Unit#: [id number] Attend Dr: CÉSAR SALES CNM Re02/01/25 Status: SONAL REF Location: HOHHCLNP Disch: ----- ------- SPEC : [id number] RECD: 02/02/25 STATUS: HOA ARCHER NUM: [id number] FRANCHESKA: 02/01/25-[address]: CÉSAR SALES CNM ENTERED: 02/02/25 SP TYPE: Pap Smr OTHR : ORDERED: Pap Smear, PAP path review Interpretation ABNORMAL PAP TEST. Satisfactory for evaluation, with mildly dysplastic squamous cells / HPV cytopathic change (DAVID 1; low grade squamous intraepithelial lesion). HPV High Risk: Positive HPV Genotyping 16: Negative HPV Genotyping 18: Negative Clinical Information LMP: Unknown date Previous PAP test: Unknown date, ASCUS, HPV neg preceded by nil HPV pos Other surgery: IUD Material Received ThinPrep-Cervical PAP Disclaimer As of April 21, 2024, the technical services to include automated prescreening performed by the ThinPrep Imaging System, PAP screening and HPV testing will be performed at [facility] (CLIA #[id number]), [address] [place] [address]. Testing for HPV was performed using the Mima WILLIE 6800 system. The presence of HPV in the female genital tract is associated with a number of diseases, including cervical carcinoma. The HPV DNA high risk pool tests for HPV 31, 33, 35, 39, 45, 51, 52, 56, 58, 59, 66 and 68. The testing for HPV 16 and 18 genotypes has also been performed. A positive result indicates detection of nucleic acid sequences from one or more subtypes, whereas a negative result indicates such sequences were not detected. All professional services are performed by [facility] ([address] [place] [address]; ; CLIA #[id number]). The PAP Test is a screening procedure with the inherent possibility of both false negative and false positive results. Results should be interpreted in the context of historic and current clinical findings. Reliability of the PAP Test is enhanced by performing the test on a regular repetitive basis. CONTINUED ON NEXT PAGE ----- ------- Name: Rosy Yanez Age/Sex: 34/F : 1990 [id number] Unit#: [id number] Attend Dr: CÉSAR SALES CNM Re02/01/25 Status: DEP REF Location: HO.HHCLNP Disch: ----- ------- SPEC : [id number] RECD: 02/02/25 STATUS: HOA ARCHER NUM: [id number] FRANCHESKA: 02/01/25-[address] [facility] [address]: CÉSAR SALES CNM ENTERED: 02/02/25 SP TYPE: Pap Smr MAGGIE DR: ORDERED: Pap Smear, PAP path review ----- ------- Signed (signature on file) Marion Enriquez MD 02/09/25 0854 ----- ------- END OF REPORT César Sales CNM LAB CYTOLOGY ORDERABLES F inal Result [facility] [address] [place] [phone] * (ABNORMAL) CBC auto differential (01/31/2025 11:30 AM EDT) White Blood Count 7.0 4.8 - 10.8 X10*3/uL [facility] Red Blood Count 4.20 4.20 - 5.50 X10*6/uL [facility] Hemoglobin 13.0 12.0 - 16.0 g/dl [facility] Hematocrit 38.5 37.0 - 47.0 % [facility] Mean Corpuscular Volume 91.7 80.0 - 98.0 fL [facility] Mean Corpuscular Hemoglobin 31.0 27.0 - 33.0 pg [facility] Mean Corpuscular HGB Conc 33.8 31.0 - 35.0 g/dl [facility] Red Cell Distribution Width 11.7 11.0 - 16.0 % [facility] Platelet Count 385 160 - 400 X10*3/uL [facility] Mean Platelet Volume 11.0 9.4 - 12.3 fL [facility] Neutrophils Percent Auto 74.1(H) 45 - 73 % [facility] Imm Gran Pct Auto 0.3 0.0 - 0.4 % [facility] Lymphocytes Percent Auto 18.1(L) 20 - 40 % [facility] Monocytes Percent Auto 6.5 2 - 11 % [facility] Eosinophils Percent Auto 0.7 0 - 4 % [facility] Basophils Percent Auto 0.3 0 - 2 % [facility] NRBC Pct Auto 0.0 0.0 - 0.2 /100WBC [facility] Neutrophils Absolute Auto 5.2 2.0 - 8.3 x10*3/uL [facility] Imm Gran Abs Auto 0.02 0.00 - 0.03 X10*3/uL [facility] Lymphocytes Absolute Auto 1.3 1.2 - 4.9 X10*3/uL [facility] Monocytes Absolute Auto 0.5 0.1 - 1.2 X10*3/uL [facility] Eosinophils Absolute Auto 0.1 0.0 - 0.4 X10*3/uL [facility] Basophils Absolute Auto 0.0 0.0 - 0.2 X10*3/uL [facility] NRBC Abs Auto 0.000 0.0 - 0.012 X10*3/uL [facility] Blood Venous blood specimen / Unknown 01/31/2025 11:30 AM EDT 01/31/2025 1:17 PM EDT us Kevin Trejo MD LAB BLOOD ORDERABLES Final Result Performing Organization Address [facility] Co de Phone Number [facility] [address] [place] [phone] * (ABNORMAL) Sed Rate by Modified Nigelergren (01/31/2025 11:30 AM EDT) Erythrocyte Sedimentation Rate 67(H) 0 - 20 MM/HR [facility] Comment:Patients with polycy themia and many hemoglobin abnormalitiesmay have depressed sed rates whereas patients with anemiamay have elevated sed rates. Blood Venous blood specimen / Unknown 01/31/2025 11:30 AM EDT 01/31/2025 1:17 PM EDT us Kevin Trejo MD LAB BLOOD ORDERABLES Final Result Performing Organization Address [facility] Co de Phone Number [facility] [address] [place] [phone] * (ABNORMAL) C-reactive Protein (01/31/2025 11:30 AM EDT) Pathologist [facility] C Reactive Protein 4.79(H) < or = 0.50 mg/dL [facility] Blood Venous blood specimen / Unknown 01/31/2025 11:30 AM EDT 01/31/2025 1:17 PM EDT us Kevin Trejo MD LAB BLOOD ORDERABLES Final Result Performing Organization Address [facility] Co de Phone Number [facility] [address] [place] [phone] * Influenza B (ID NOW Rapid Molecular) (01/31/2025 10:55 AM EDT) [facility] Influenza B Negative Negative, Indeterminate [facility] Swab 01/31/2025 10:5 5 AM EDT Kevin Trejo MD POINT OF CARE TEST ENTER/ED IT ORDERABLES Final Result Performing Organization Address [facility]/ZIP Co de Phone Number [facility] [address] [place] [phone] * Influenza A (ID NOW Rapid Molecular) (01/31/2025 10:55 AM EDT) [facility] Influenza A Negative Negative, Indeterminate [facility] Swab 01/31/2025 10:5 5 AM EDT us Kevin Trejo MD POINT OF CARE TEST ENTER/ED IT ORDERABLES Final Result Performing Organization Address [facility]/ZIP Co de Phone Number [facility] [address] [place] [phone] * POCT Rapid COVID Ag (01/31/2025 10:37 AM EDT) [facility] Rapid COVID Ag Negative Swab 01/31/2025 10:3 7 AM EDT Kevin Trejo MD POINT OF CARE TEST ENTER/ED IT ORDERABLES Final Result * Hepatitis A,B,C Profile (07/31/2023 10:27 AM EST) [facility] Hepatitis A IgM Nonreactive Nonreactive [facility] Comment:IgM antibodies to JAMES V not detected; does not exclude earlyacute or recovered HAV infection. ~Hepatitis B Surface Antibody REACTIVE Nonreactive [facility] Comment:REACTIVE: > 11.99 mI U/mL Hepatitis B Core Antibody Nonreactive Nonreactive [facility] Hepatitis C Antibody Nonreactive Nonreactive [facility] Comment:Antibodies to HCV no t detected; does not exclude early acuteHCV infection. Hepatitis B Surface Ag Negative Negative [facility] Blood Venous blood specimen / Unknown 07/31/2023 10:27 AM EST 07/31/2023 2:11 PM EST us Kevin Trejo MD LAB BLOOD ORDERABLES Final Result Performing Organization Address [facility] Co de Phone Number [facility] [address] [place] [phone] * HIV-1/2 Antigen and Antibodies, Fourth Generation, with Reflexes (07/28/2023 10:33 AM EST) [facility] HIV AB/AG Nonreactive Nonreactive [facility] Comment:HIV-1 p24 Ag and/or HIV-1/HIV-2 Ab not detected.A test result that is nonreactive does not exclude thepossibility of exposure to or infection with HIV-1 and/orHIV-2. Nonreactive results in this assay for individualswith prior exposure to HIV-1 and/or HIV-2 may be due toantigen and antibody levels that are below the limit ofdetection of this assay.[employer] or Skip HIV Ag/Ab Combo assay result andsupplemental assay results should be interpreted inconjunction with the patient's clinical presentation,history and other laboratory results. If the results areinconsistent with clinical evidence, additional testing issuggested to confirm the result. Blood Venous blood specimen / Unknown 07/28/2023 10:33 AM EST 07/28/2023 2:52 PM EST us Kevin Trejo MD LAB BLOOD ORDERABLES Final Result Performing Organization Address [facility] Co de Phone Number [facility] [address] [place] [phone] from Last 3 Months or Most Recently Relevant to Health Maintenance Insurance [place] [facility] [employer] ADULT DENTAL - HSN FULL (MEDICAID) Care Teams Acid Purifier Relationship Specialty Start Date End Date Kevin Trejo MD [address] [place] [address] [place] [phone] PCP - General Internal Medicine 05/14/16
--- OUTSIDE RECORDS SUMMARY | 2025-02-23 09:31 | XMS_ITS | Encounter Summary ---
Author Organization [employer] Address [address] [facility] 7t [place] [address] Care Team Providers Care Senior Mechanical Project Engineer Name Role Phone Kevin Trejo MD Primary Care Provider [phone] Reason for Referral * Imaging (Routine) - Closed Specialty Diagnoses / Procedures Referred By Jen jones Referred To Contact Radiology Diagnoses Transaminitis Procedures US Abdomen Complete Kevin Trejo MD [address] [place] [address] Phone: tel: fax: [address] Phone: tel: fax: Referral ID Status Reason Start Date Expiration Date Visits Re quested Visits Authorized [id number] Closed 07/30/2023 07/29/2024 1 1 Encounter Details Date Type Department Care Team (Late st Contact Info) Description 07/30/2023 Orders Only [facility] CHC MED & PEDS [address] [place] [address] Kevin Trejo MD [address] [place] [address] Transaminitis (Primary Dx) Social History Tobacco Use [...] AM EST Narrative 08/20/2023 7:29 PM EST [place] [address] Ultrasound Report Signed Patient: Rosy Yanez MR#: [id number] 1215 : 1990 Acct:[id number] Age/Sex: 32 / F ADM Date: 08/19/23 Loc: HO.US Attending Dr: Kevin Trejo MD Ordering Physician: Kevin Trejo MD Date of Service: 08/19/23 Procedure(s): US abdomen complete Accession Number(s): [id number] cc: Kevin Trejo MD EXAMINATION: US ABDOMEN [...] MD in OV> 08/20/231924 DD/ 8 TD/TT: Zanjero: Procedure Note Donotuseinterpreter, Image - 08/20/2023 [place] [address] Ultrasound Report Signed Patient: Rosy YanezMR#: [id number] : 1990Acct:[id number] Age/Sex: 32 FADM Date: 08/19/23 Loc: HO.US Attending Dr: Kevin Trejo MD Ordering Physician: Kevin Trejo MD Date of Service: 08/19/23 Procedure(s): US abdomen complete Accession Number(s): [id number] cc: Kevin Trejo MD EXAMINATION: US ABDOMEN [...] MD in OV> 08/20/231924 DD/ 8 TD/TT: Zanjero: us Kevin Trejo MD IMG US PROCEDURES Final Res ult * Hepatitis B Core Antibody, Total (07/31/2023 10:27 AM EST) Hepatitis B Core Antibody Nonreactive Nonreactive [facility] Blood Venous blood specimen / Unknown 07/31/2023 10:27 AM EST 07/31/2023 2:14 PM EST us Kevin Trejo MD LAB BLOOD ORDERABLES Final Result Performing Organization Address City/State/[facility] Co de Phone Number [facility] [address] [place] [phone] * Hepatitis A,B,C Profile (07/31/2023 10:27 AM EST) Hepatitis A IgM Nonreactive Nonreactive [facility] Comment:IgM antibodies to JAMES V not detected; does not exclude earlyacute or recovered HAV infection. ~Hepatitis B Surface Antibody REACTIVE Nonreactive [facility] Comment:REACTIVE: > 11.99 mI U/mL Hepatitis B Core Antibody Nonreactive Nonreactive [facility] Hepatitis C Antibody Nonreactive Nonreactive [facility] Comment:Antibodies to HCV no t detected; does not exclude early acuteHCV infection. Hepatitis B Surface Ag Negative Negative [facility] Blood Venous blood specimen / Unknown 07/31/2023 10:27 AM EST 07/31/2023 2:11 PM EST us Kevin Trejo MD LAB BLOOD ORDERABLES Final Result Performing Organization Address [facility] Co de Phone Number [facility] [address] [place] [phone] [phone] * Hepatitis A IgM (07/31/2023 10:27 AM EST) Hepatitis A IgM Nonreactive Nonreactive [facility] Comment:IgM antibodies to JAMES V not detected; does not exclude earlyacute or recovered HAV infection. Blood Venous blood specimen / Unknown 07/31/2023 10:27 AM EST 07/31/2023 2:11 PM EST us Kevin Trejo MD LAB BLOOD ORDERABLES Final Result Performing Organization Address [facility] de Phone Number [facility] [address] [place] [phone] documented in this encounter Visit Diagnoses Diagnosis Transaminitis- Primary Nonspecific elevation of levels of transaminase or lactic acid dehydrogenase (LDH) documented in this encounter Additional Health Concerns Assessment Noted Time PHQ-9 Depression Total Score: 8 07/28/19 24 10:28 AM EST documented as of this encounter Care Teams Senior Mechanical Project Engineer Relationship Specialty Start Date End Date Kevin Trejo MD [address] [place] [address] PCP - General Internal Medicine 05/14/16 documented as of this encounter
--- OUTSIDE RECORDS SUMMARY | 2025-02-23 09:31 | XMS_ITS | Encounter Summary ---
Author Organization [employer] Address 75 [facility] 7t [place] [address] Care Team Providers Care Tool Room Lathe Operator Name Role Phone Kevin Trejo MD Primary Care Provider [phone] Encounter Details Date Type Department Care Team ([facility] st Contact Info) Description 02/18/2025 Orders Only [facility] CHC MED & PEDS [address] [place], [place] [phone] Kevin Trejo MD [address] [place], [place] [phone] Leg cramps (Primary Dx) Social History Tobacco Use Types [...] Type Priority Associated Diagnoses Orde r Schedule Basic Metabolic Panel Lab Routine Leg cramps Expected: 02/18/2025 (Approximate), Expires: 02/18/2026 Magnesium Lab Routine Leg cramps Expected: 02/18/2025, Expires: 02/18/2026 Vitamin B12/Folate, Serum Panel Lab Routine Leg cramps Expected: 02/18/2025, Expires: 02/18/2026 Vitamin D, 25-Hydroxy, Total, Immunoassay Lab Routine Leg cramps Expected: 02/18/2025 (Approximate), Expires: 02/18/2026 documented as of this encounter Visit Diagnoses Diagnosis Leg cramps- Primary Cramp of limb documented in this encounter Additional Health Concerns Assessment Noted Time PHQ-9 Depression Total Score: 0 08/11/19 25 10:14 AM EST documented as of this encounter Care Teams Tool Room Lathe Operator Relationship Specialty Start Date End Date Kevin Trejo MD [address] [place] [address] PCP - General Internal Medicine 05/14/16 documented as of this encounter
--- OUTSIDE RECORDS SUMMARY | 2025-02-23 09:31 | XMS_ITS | Encounter Summary ---
Author Organization [employer] Address [address] [facility] [address] 7[address] [place] [address] Care Team Providers Care Driller Machine Name Role Phone Kevin Trejo MD Primary Care Provider [phone] Encounter Details Date Type Department Care Team ([facility] st Contact Info) Description 02/07/2025 Results Follow-Up [facility] MEDICINE [address] [place], [place] [phone] Rebeka Lopez CN [address] [place] [address] HPV DNA, Low/High Risk Social History Tobacco Use Types Packs/Day Years [...] documented as of this encounter Care Teams Driller Machine Relationship Specialty Start Date End Date Kevin Trejo MD [address] [place] [address] PCP - General Internal Medicine 05/14/16 documented as of this encounter
--- OUTSIDE RECORDS SUMMARY | 2025-02-23 09:31 | XMS_ITS | Encounter Summary ---
Author Organization [employer] Address [address] [facility] [address] 7[address] [place] [address] Care Team Providers Care Breast Buffer Name Role Phone Kevin Trejo MD Primary Care Provider [phone] Encounter Details Date Type Department Care Team ([facility] st Contact Info) Description 02/09/2025 Results Follow-Up [facility] MEDICINE [address] [place], [place] [phone] Rebeka Lopez CNM [address] [place] [address] Pap Smear Social History Tobacco Use Types Packs/Day Years [...] Miscellaneous Notes * Result Encounter Note - Rebeka Lopez CNM - 02/09/2025 9:13 AM EDT Referring for colpo as precaution because ASCUS last year and HPV pos in 2022 documented in this encounter Plan of Treatment Not on file documented as of this encounter Visit Diagnoses Not on filedocumented in this encounter Additional Health Concerns Assessment Noted Time PHQ-9 Depression Total Score: 0 08/11/19 25 10:14 AM EST documented as of this encounter Care Teams Breast Buffer Relationship Specialty Start Date End Date Keivn Trejo MD [address] [place] [address] PCP - General Internal Medicine 05/14/16 documented as of this encounter
--- OUTSIDE RECORDS SUMMARY | 2025-02-23 09:31 | XMS_ITS | Encounter Summary ---
Author Organization [employer] Address 75 [facility] 7t [place] [address] Care Team Providers Care Cash Checker Name Role Phone Kevin Trejo MD Primary Care Provider [phone] Reason for Visit * Reason Comments Med Change Request Encounter Details Date Type Department Care Team ([facility] Contact Info) Description 12/03/2022 Refill C [facility] MED [facility]S [address] [place], [place] [phone] Karen Roblero MD [address] [place], [place] [phone] Social History Tobacco Use Types Packs/Day Years [...] documented as of this encounter Care Teams Cash Checker Relationship Specialty Start Date End Date Kevin Trejo MD [address] [place] [address] PCP - General Internal Medicine 05/14/16 documented as of this encounter
--- OUTSIDE RECORDS SUMMARY | 2025-02-23 09:31 | XMS_ITS | Encounter Summary ---
Author Organization [employer] Address 75 [facility] 7t [place] [address] Care Team Providers Care Dipper And Baker Name Role Phone Kevin Trejo MD Primary Care Provider [phone] Reason for Visit * Reason Onset Date Comments Results 02/18/2025 Encounter Details Date Type Department Care Team (Late st Contact Info) Description 02/18/2025 Results Follow-Up [facility] MEDICINE [address] [place] [address] Wing Child RN XR Chest 2 Views Social History Tobacco Use Types Packs/Day Years [...] encounter Miscellaneous Notes * Telephone Encounter - Wing Mateusz RN - 02/18/2025 11:34 AM EDT Tc to pt to relay lab results and PCP recommendations. Reports she no long has a cough and is feeling better. Pt also wanted to ask PCP about cramping in both legs, states the tizanidine does not help and is looking for an alternative. Relayed to pt that would pass this request to PCP and call back when PCP responds. Pt verbalized understanding and agreement with plan. ----- Message from Kevin Trejo MD sent at 02/17/2025 5:20 PM EDT ----- Please call to report the results of the x-ray. Interval improvement of the opacity. No further intervention needed for now. Patient is to contact the office if having any recurrence of the cough or any other alarming symptoms. ----- Message ----- From: Emily Ris Results In Sent: 02/17/2025 12:37 PM EDT To: Kevin Trejo MD documented in this encounter Plan of Treatment Not on file documented as of this encounter Visit Diagnoses Not on filedocumented in this encounter Additional Health Concerns Assessment Noted Time PHQ-9 Depression Total Score: 0 08/11/19 25 10:14 AM EST documented as of this encounter Care Teams Dipper And Baker Relationship Specialty Start Date End Date Kevin Trejo MD [address] [place] [address] PCP - General Internal Medicine 05/14/16 documented as of this encounter
--- OUTSIDE RECORDS SUMMARY | 2025-02-23 09:31 | XMS_ITS | Encounter Summary ---
Author Organization [employer] Address [address] [facility] 7t [place] [address] Care Team Providers Care Promotion Officer Name Role Phone Kevin Trejo MD Primary Care Provider [phone] Reason for Visit * Reason Onset Date Comments Nurse Triage 02/02/2025 Encounter Details Date Type Department Care Team ([facility] st Contact Info) Description 02/02/2025 Telephone C [facility]S [address] [place], [place] [phone] Kevin Trejo MD [address] [place] [address] Nurse Triage Social History Tobacco Use Types [...] Telephone Encounter - Yumi Fang RN - 02/02/2025 1:36 PM EDT Triage call Pt was seen in [facility] 01/31/25 with Z-geoffrey ordered . Pt reports is still taking this medication. Pt reports xrays were taken at that time and Pt had left sided chest pain. Pt reports neg for fever but, now a new symptoms of right sided chest pain with coughing snf breathing has started. The area under right breast. Pt is coughing frequently while being triaged. Pt is advised to return to [facility] today. Pt agrees with disposition. Pt insurance is verified as active. Protocol Used: Cough (Adult) Protocol-Based Disposition: See in Office or Video Visit Today or Tomorrow Video visit not offered Positive Triage Questions: * Continuous (nonstop) coughing interferes with work or school and no improvement using cough treatment per Care Advice * Patient wants to be seen * All higher-acuity triage questions were negative Care Advice Discussed: * Reassurance and Education - Cough * Prevent Dehydration * Reasons To Call Back - Difficulty breathing - Cough lasts more than 3 weeks - Fever lasts more than 3 days - You become worse * Telephone Encounter - Jacek Yee - 02/02/2025 1:14 PM EDT Symptom: Cough Outcome: Schedule an appointment to be seen within 24 hours Reason: when pt coughs and goes to breathe, she has this sharp pain on her right rib under her breast. The caller accepted this outcome. Contact pt at [phone] documented in this encounter Plan of Treatment Not on file documented as of this encounter Visit Diagnoses Not on filedocumented in this encounter Additional Health Concerns Assessment Noted Time PHQ-9 Depression Total Score: 0 08/11/19 25 10:14 AM EST documented as of this encounter Care Teams Promotion Officer Relationship Specialty Start Date End Date Kevin Trejo MD [address] [place] [address] PCP - General Internal Medicine 05/14/16 documented as of this encounter
--- OUTSIDE RECORDS SUMMARY | 2025-02-23 09:31 | XMS_ITS | Encounter Summary ---
Author Organization [employer] Address 75 [facility] 7t [place] [address] Care Team Providers Care Senior Asic Engineer Name Role Phone Kevin Trejo MD Primary Care Provider [phone] Reason for Visit * Reason Onset Date Comments Nurse Triage 06/17/2023 Encounter Details Date Type Department Care Team ([facility] st Contact Info) Description 06/17/2023 Telephone C [facility] [address] [place], [place] [phone] Kevin Trejo MD [address] [place] [address] Nurse Triage Social History Tobacco Use Types [...] Advised to come to [facility] today at [facility] 920am apt. Home care reviewed and Pt [...] caller accepted this outcome Please contact Pt [phone] documented in this encounter Plan of Treatment Not on file documented as of this encounter Visit Diagnoses Not on filedocumented in this encounter Additional Health Concerns Assessment Noted Time PHQ-9 Depression Total Score: 0 07/30/19 11:27 AM EST documented as of this encounter Care Teams Senior Asic Engineer Relationship Specialty Start Date End Date Kevin Trejo MD [address] [place] [address] PCP - General Internal Medicine 05/14/16 documented as of this encounter
--- OUTSIDE RECORDS SUMMARY | 2025-02-23 09:31 | XMS_ITS | Encounter Summary ---
Author Organization [employer] Address [address] [facility] 7 [place] [address] Care Team Providers Care Rug Repairer Name Role Phone Kevin Trejo MD Primary Care Provider [phone] Reason for Visit * Reason Onset Date Comments Appointment Request 11/29/2022 Encounter Details Date Type Department Care Team (Late st Contact Info) Description 11/29/2022 Telephone [facility] MEDICINE [address] [place] [address] Kevin Trejo MD [address] [place] [phone] Appointment Request Social History Tobacco Use Types [...] requesting a follow up appointment with PCP. [employer] Caller checked November schedule and no availability. documented in this encounter Plan of Treatment Not on file documented as of this encounter Visit Diagnoses Not on filedocumented in this encounter Additional Health Concerns Assessment Noted Time PHQ-9 Depression Total Score: 0 07/30/19 23 11:27 AM EST documented as of this encounter Care Teams Rug Repairer Relationship Specialty Start Date End Date Kevin Trejo MD [address] [place] [address] PCP - General Internal Medicine 05/14/16 documented as of this encounter
--- OUTSIDE RECORDS SUMMARY | 2025-02-23 09:31 | XMS_ITS | Encounter Summary ---
Author Organization [employer] Address [address] [facility] 7t [place] [address] Care Team Providers Care Patrol Mother Name Role Phone Kevin Trejo MD Primary Care Provider [phone] Encounter Details Date Type Department Care Team (Late st Contact Info) Description 08/12/2022 Orders Only [facility] MEDICINE [address] [place] [address] Kevin Trejo MD [address] [place], [place] [phone] Other drug-induced neutropenia (CMS/HCC) (Primary Dx); Elevated [...] Hepatitis C Antibody NON-REACT MARLA NON-REACT MARLA [employer] [place] [employer] Index 0.03 <1.00 [employer] [place] [employer] Comment: HCV antibody was non-reactive. There is no laboratory evidence of HCV infection. In most cases, no further action is required. However, if recent HCV exposure is suspected, a test for HCV RNA (test code 46049) is suggested. For additional information please refer to http://education.[employer]/faq/JRV46g6 (This link is being provided for informational/ educational purposes only.) Blood Venous blood specimen / Unknown 08/16/2022 9:28 AM EST 08/16/2022 9:28 AM EST us Kevin Trejo MD LAB BLOOD ORDERABLES Final Result Performing Organization Address City/[facility]/ZIP Co de Phone Number [facility] [address] [place] [address], [place] [phone] [employer] [place] [employer] [address] [address] [place] [address], (Nl2) [place] [phone] * Hepatitis A Antibody, Total with Reflex to IgM (08/13/2022 9:10 AM EST) Hepatitis A Antibody, Total w/Refl IgM NON-REACT MARLA NON-REACT MARLA [employer] [place] [employer] Comment: For additional information, please refer to http://education.[employer]/faq/XMQ275 (This link is being provided for informational/ educational purposes only.) 08/13/2022 9:10 AM EST 08/13/2022 9:11 AM EST us Kevin Trejo MD LAB BLOOD ORDERABLES Final Result Performing Organization Address City/[facility]/ZIP Co de Phone Number [employer] [address] [place] [address], [place] [phone] [employer] [place] [employer] [address] [address] [place] [address], (Nl2) [place] [address] * Hepatitis B Core Antibody, Total (08/13/2022 9:10 AM EST) Hepatitis B Core Antibody Total NON-REACT MARLA NON-REACT MARLA [employer] [place] [employer] Blood Venous blood specimen / Unknown 08/13/2022 9:10 AM EST 08/13/2022 9:11 AM EST us Kevin Trejo MD LAB BLOOD ORDERABLES Final Result Performing Organization Address City/[facility]/ZIP Co de Phone Number [address], [place] [phone] [employer] [place] [employer] [address] [address] [place] [address], (Nl2) [place] [phone] * (ABNORMAL) Hepatitis B Surface Antibody, Qualitative (08/13/2022 9:10 AM EST) Pathologist [facility] Hepatitis B Surface Antibody QL REACTIVE( A) NON-REACT MARLA [facility] [place] [facility] Blood Venous blood specimen / Unknown 08/13/2022 9:10 AM EST 08/13/2022 9:11 AM EST Kevin Trejo MD LAB BLOOD ORDERABLES Final Result [facility] [address], [place] [address] [employer] [place] [facility] [address] [facility], (Nl2) [place] [address] * (ABNORMAL) Hepatic Function Panel (08/13/2022 9:10 AM EST) Pathologist [facility] Protein, Total 7.7 6.1 - 8.1 g/dL [facility] [place] [facility] Albumin 4.8 3.6 - 5.1 g/dL [facility] [place] [facility] Globulin 2.9 1.9 - 3.7 g/dL (calc) [facility] [place] [facility] Albumin/Globulin Ratio 1.7 1.0 - 2.5 (calc) [facility] Bilirubin, Total 0.8 0.2 - 1.2 mg/dL [facility] [place] [facility] Bilirubin, Direct 0.2 < OR = 0.2 mg/dL [facility] [place] [facility] Bilirubin, Indirect 0.6 0.2 - 1.2 mg/dL (calc) [facility] [place] [facility] Alkaline Phosphatase 64 31 - 125 U/L [facility] [place] [facility] AST 46(H) 10 - 30 U/L [facility] [place] [facility] ALT 70(H) 6 - 29 U/L [facility] [place] [facility] Blood Venous blood specimen / Unknown 08/13/2022 9:10 AM EST 08/13/2022 9:11 AM EST Kevin Trejo MD LAB BLOOD ORDERABLES Final Result [facility] [address], [place] [address] [facility] [facility] [place] [facility] [address] [facility], (Nl2) [place] [address] * (ABNORMAL) CBC auto differential (08/13/2022 9:10 AM EST) White Blood Cell Count 2.0(L) 3.8 - 10.8 Thousand/ uL [facility] Red Blood Cell Count 4.09 3.80 - 5.10 Million/u L [facility] Hemoglobin 13.6 11.7 - 15.5 g/dL [facility] [place] [facility] Hematocrit 38.9 35.0 - 45.0 % [facility] MCV 95.1 80.0 - 100.0 fL [facility] [place] [facility] MCH 33.3(H) 27.0 - 33.0 pg [facility] MCHC 35.0 32.0 - 36.0 g/dL [facility] [place] [facility] RDW 12.7 11.0 - 15.0 % [facility] Platelet Count 214 140 - 400 Thousand/ uL [facility] [place] [facility] MPV 10.6 7.5 - 12.5 fL [facility] [place] [facility] Absolute Neutrophils 996(L) 1,500 - 7,800 cells/uL [facility] Absolute Lymphocytes 686(L) 850 - 3,900 cells/uL [facility] Absolute Monocytes 258 200 - 950 cells/uL [facility] Absolute Eosinophils 40 15 - 500 cells/uL [facility] Absolute Basophils 20 0 - 200 cells/uL [facility] [place] [facility] Neutrophils 49.8 % [facility] [place] [facility] Lymphocytes 34.3 % [facility] [place] [facility] Monocytes 12.9 % [facility] [place] [facility] Eosinophils 2.0 % [facility] [place] [facility] Basophils 1.0 % [facility] [place] [facility] Blood Venous blood specimen / Unknown 08/13/2022 9:10 AM EST 08/13/2022 9:11 AM EST Kevin Trejo MD LAB BLOOD ORDERABLES Final Result [facility] [address] [facility] [place] [address] [employer] [facility] [address] [facility], (Nl2) [place] [address] documented in this encounter Visit Diagnoses Diagnosis Other drug-induced neutropenia (CMS/HCC)- Primary Elevated liver enzymes Other nonspecific abnormal serum enzyme levels documented in this encounter Additional Health Concerns Assessment Noted Time PHQ-9 Depression Total Score: 0 07/30/19 23 11:27 AM EST documented as of this encounter Care Teams Patrol Mother Relationship Specialty Start Date End Date Kevin Trejo MD [address] [place] [address] PCP - General Internal Medicine 05/14/16 documented as of this encounter
--- OUTSIDE RECORDS SUMMARY | 2025-02-23 09:31 | XMS_ITS | Encounter Summary ---
Author Organization [employer] Address [address] [facility] [address] [place] [address] Care Team Providers Care [employer]ter Name Role Phone Kevin Trejo MD Primary Care Provider [phone] Reason for Referral * Imaging (Routine) - Closed Specialty Diagnoses / Procedures Referred By Jen jones Referred To Contact Diagnoses Painful breasts Segmental fibroadenosis of breast, unspecified laterality Procedures BI US Breast Complete Right Karen Roblero MD [address] [place] [address] Phone: tel: fax: [address] Phone: tel: fax: Referral ID Status Reason Start Date Expiration Date Visits Re quested Visits Authorized [id number] Closed 12/11/2022 06/09/2023 1 1 * Imaging (Routine) - Closed Specialty Diagnoses / Procedures Referred By Jen jones Referred To Contact Diagnoses Painful breasts Segmental fibroadenosis of breast, unspecified laterality Procedures BI US Breast Complete Left Karen Roblero MD [address] [place] [address] Phone: tel: fax: [address] Phone: tel: fax: Referral ID Status Reason Start Date Expiration Date Visits Re quested Visits Authorized [id number] Closed 12/11/2022 06/09/2023 1 1 * Imaging (Routine) - Closed Specialty Diagnoses / Procedures Referred By Contjennifer t Referred To Contact Diagnoses Painful breasts Segmental fibroadenosis of breast, unspecified laterality Procedures BI Mammogram Diagnostic Bilateral Karen Roblero MD [address] [place] [address] Phone: tel: fax: [address] Phone: tel: fax: Referral ID Status Reason Start Date Expiration Date Visits Re quested Visits Authorized [id number] Closed 12/11/2022 06/09/2023 1 1 Encounter Details Date Type Department Care Team (Late st Contact Info) Description 12/11/2022 Orders Only [facility] [address] [place] [address] Karen Roblero MD [address] [place] [address] Painful breasts (Primary Dx); Segmental fibroadenosis of [...] documented as of this encounter Care Teams [employer] Relationship Specialty Start Date End Date Kevin Trejo MD [address] [place] [id number] PCP - General Internal Medicine 05/14/16 documented as of this encounter
[2025-02-23 15:25] LABS: Anion Gap 11 (12-20); Blood Urea Nitrogen 9 mg/dL (9-16); Calcium 9.0 mg/dL (8.4-10.2); Carbon Dioxide 27 mmol/L (22-29); Chloride 104 mmol/L (96-108); Estimated Glomerular Filt Rate > 60; Magnesium 2.0 mg/dL (1.6-2.6); Potassium 3.8 mmol/L (3.3-5.1); Sodium 138 mmol/L (135-145)
[2025-02-23 15:38] LABS: Folate 6.9 ng/mL (> or = 4.0); Vitamin B12 318 pg/mL (200-900)
== END 2025-02-23 08:57 | disposition home or self-care (01) ==
LOC: HO.CHCLDS 08:56
PROVIDERS: Visit Provider Internal Medicine
DX: R25.2 Cramp and spasm (principal)
CPT/HCPCS: 36415; 80048; 82306; 82607; 82746; 83735